=== PATIENT | male | born 1950 | race African-American/Black ===

== ENCOUNTER 2016-09-06 09:31 | Emergency (ER) | payer SELFPAY ==
[~2016-09-06] VITALS: Ht 160 cm; Wt 65.8 kg
[~2016-09-06 09:31] MED LIST: ASPI-482 PO
[2016-09-06] MEDS ORDERED: MULTIVIT INFUSN,ADULT 4,VIT K 10 ML, FOLIC ACID 1 MG, THIAMINE 100 MG in IV DEXTROSE 5%... IV ONE (10:15)
--- NOTE | 2016-09-06 10:16 | EKG ---
[facility] [address] [place] [address] Test Date: 2016-09-06 Test Time: 09:44:46 Pat Name: LAVELL BRODY Department: Room: Gender: M Eyeglass Fitter: : 1950 Requested By: VISHAL SAENZ Order Number: [id number] Reading MD: Lynsey Beckham Measurements Intervals [place] Rate: 78 P: 66 MD: 124 QRS: 52 QRSD: 116 T: 34 QT: 384 QTc: 441 Interpretive Statements SINUS RHYTHM LEFT ATRIAL ABNORMALITY LVH WITH REPOLARIZATION ABNORMALITY ABNORMAL ECG RI6.01 Compared to ECG 11/09/2014 21:59:03 No significant changes Electronically Signed On 09-10-2016 15:13:49 CDT by Lynsey Beckham
[2016-09-06 10:21] LABS: BASO % 1 % (0-3); EOS % 1 % (0-3); HEMATOCRIT 48.4 % (39.0-53.0); HEMOGLOBIN 16.5 g/dL (13.0-17.5); LYMPH # 1.7 x10^3/uL (1.0-4.8); LYMPH % 31 % (24-48); MEAN CORPUSCULAR HEMOGLOBIN 31 pg (25-35); MEAN CORPUSCULAR HGB CONC 34 g/dL (31-37); MEAN CORPUSCULAR VOLUME 91 fL (79-100); MONO % 12 % (0-9); NEUT % 55 % (31-73); PLATELET COUNT 172 x10^3/uL (140-400); RED BLOOD COUNT 5.35 x10^6/uL (4.30-5.70); RED CELL DISTRIBUTION WIDTH 14.2 % (11.5-14.5); WHITE BLOOD COUNT 5.4 x10^3/uL (4.0-11.0)
[2016-09-06 10:32] LABS: CREATININE 1.2 mg/dL (0.7-1.3); POTASSIUM 4.3 mmol/L (3.5-5.1)
--- NOTE | 2016-09-06 10:35 | RAD ---
Indication shortness of breath. History of hypertension. PA and lateral views of the chest were obtained. Comparison is made to an examination 11/09/2014. The heart and pulmonary vessels appear normal. The lungs are clear. There is no pleural fluid or pneumothorax.. Mild scoliosis is noted. IMPRESSION: No acute or focal process is seen in the chest
[2016-09-06 10:38] LABS: ALBUMIN 4.1 g/dL (3.4-5.0); ALBUMIN/GLOBULIN RATIO 0.8 (1.0-1.7); TOTAL BILIRUBIN 0.9 mg/dL (0.2-1.0); TOTAL PROTEIN 9.3 g/dL (6.4-8.2)
--- NOTE | 2016-09-06 11:09 | PHYS DOC ---
Past Medical History Past Medical History: Hypertension Past Surgical History: No Surgical History Alcohol Use: Occasionally Additional Information: PT REPORTS THAT HE HAS BEEN DRINKING FOR 3 WEEKS DAILY UP TO A FIFTH DAILY Drug Use: Cocaine, Marijuana Adult General Chief Complaint Chief Complaint: SHORTNESS OF BREATH HPI HPI Patient is a 65 year old male who presented to the ED with the complaint of short of air, but by the time I saw him, his complaint was "I think I must be dehydrated". Patient feels dehydrated. He has some low back pain that he's had when he has been dehydrated before. He denies vomiting or diarrhea. He states he has been drinking alcohol "as much as I can get my hands on". He's been drinking excessively for several days or weeks. He said he has been through treatment before and had been doing well for quite some time but recently started drinking more due to "stress". Patient is homeless, states he has been staying "with whoever will have me". He has friends and family that he's been going from place to place. He has no primary physician and is on no medications. Gives a history of hepatitis C and states "and I know with that I shouldn't be drinking". Review of Systems Review of Systems Constitutional: Denies fever or chills [] Eyes: Denies change in visual acuity, redness, or eye pain [] HENT: Denies nasal congestion or sore throat [] Respiratory: He had complained of shortness of breath on arrival but did not complain of that to me. Cardiovascular: Denies chest pain GI: Denies abdominal pain, nausea, vomiting, bloody stools or diarrhea [] : Denies dysuria or hematuria [] Musculoskeletal: States he has had a ache in his lower back that he attributed to his "kidneys". Integument: Denies rash or skin lesions [] Neurologic: Denies headache, focal weakness or sensory changes [] Current Medications Current Medications Current Medications Medications (Trade) Dose Ordered Sig/Marisel Start Time Stop Time Status Last Admin Dose Admin Multivitamins/ Folic Acid/ Thiamine HCl/ Dextrose/Lactated Ringer's (Infuvite Adult/ Iv D5%-Lr) 1,011.2 ml @ 1,000 mls/ hr 1X ONCE 09/06/16 10:15 09/06/16 11:15 DC 09/06/16 10:32 1,000 MLS/HR Allergies Allergies Allergies Coded Allergies Type Severity Reaction Last Updated Verified No Known Drug Allergies 11/09/14 No Physical Exam Physical Exam Constitutional: Well developed, well nourished, no acute distress, non-toxic appearance. No overt tremulousness, no diaphoresis, alert, mentating normally. HENT: Normocephalic, atraumatic, bilateral external ears normal, nose normal. [ ] Eyes: conjunctiva normal, no discharge. [] Neck: Normal range of motion, no stridor. [] Cardiovascular:Heart rate regular rhythm, no murmur [] Lungs & Thorax: Bilateral breath sounds clear to auscultation [] Abdomen: Bowel sounds normal, soft, no tenderness, no masses, no pulsatile masses. [] Skin: Warm, dry, no erythema, no rash. [] Extremities: No tenderness, no cyanosis, no clubbing, ROM intact, no edema. [] Neurologic: Alert and oriented X 3, normal motor function, normal sensory function, no focal deficits noted. [] Current Patient Data Vital Signs Vital Signs Date Time Temp Pulse Resp B/P Pulse Ox O2 Delivery O2 Flow Rate FiO2 09/06/16 12:30 82 16 113/78 97 Room Air 09/06/16 09:33 98.5 98.5 Lab Values Laboratory Tests Test 09/06/16 09:48 White Blood Count 5.4x10^3/uL (4.0-11.0) Red Blood Count 5.35x10^6/uL (4.30-5.70) Hemoglobin 16.5g/dL (13.0-17.5) Hematocrit 48.4% (39.0-53.0) Mean Corpuscular Volume 91fL (79-100) Mean Corpuscular Hemoglobin 31pg (25-35) Mean Corpuscular Hemoglobin Concent 34g/dL (31-37) Red Cell Distribution Width 14.2% (11.5-14.5) Platelet Count 172x10^3/uL (140-400) Neutrophils (%) (Auto) 55% (31-73) Lymphocytes (%) (Auto) 31% (24-48) Monocytes (%) (Auto) 12% (0-9) H Eosinophils (%) (Auto) 1% (0-3) Basophils (%) (Auto) 1% (0-3) Neutrophils # (Auto) 3.0x10^3uL (1.8-7.7) Lymphocytes # (Auto) 1.7x10^3/uL (1.0-4.8) Monocytes # (Auto) 0.6x10^3/uL (0.0-1.1) Eosinophils # (Auto) 0.1x10^3/uL (0.0-0.7) Basophils # (Auto) 0.0x10^3/uL (0.0-0.2) Sodium Level 137mmol/L (136-145) Potassium Level 4.3mmol/L (3.5-5.1) Chloride Level 96mmol/L (98-107) L Carbon Dioxide Level 28mmol/L (21-32) Anion Gap 13 (6-14) Blood Urea Nitrogen 15mg/dL (8-26) Creatinine 1.2mg/dL (0.7-1.3) Estimated GFR (Cockcroft-Gault) 74.0 BUN/Creatinine Ratio 13 (6-20) Glucose Level 149mg/dL (70-99) H Calcium Level 10.0mg/dL (8.5-10.1) Total Bilirubin 0.9mg/dL (0.2-1.0) Aspartate Amino Transferase (AST) 86U/L (15-37) H Alanine Aminotransferase (ALT) 69U/L (16-63) H Alkaline Phosphatase 102U/L (46-116) Troponin I Quantitative 0.034ng/mL (0.000-0.055) LN-Uqf-B-Type Natriuretic Peptide 568pg/mL (0-124) H Total Protein 9.3g/dL (6.4-8.2) H Albumin 4.1g/dL (3.4-5.0) Albumin/Globulin Ratio 0.8 (1.0-1.7) L Laboratory Tests 09/06/16 09:48 Laboratory Tests 09/06/16 09:48 EKG EKG 12-lead EKG read by me. Sinus rhythm. Heart rate 78. There are no acute ST or T wave changes indicative of ischemia or infarction. No STEMI. 0 944 [] Radiology/Procedures Radiology/Procedures [] Course & Med Decision Making Course & Med Decision Making Pertinent Labs and Imaging studies reviewed. (See chart for details) 65-year-old male who presents with multiple complaints many of which may be related to his heavy drinking. I suggested that he consider visit to AA. He has been successful with drinking cessation in the past. I advised we would check some labs and give him a banana bag and he is agreeable to that. Labs unremarkable. Patient was feeling better after banana bag. He'll be discharged to home. [] Dragon Disclaimer Dragon Disclaimer This electronic medical record was generated, in whole or in part, using a voice recognition dictation system. Departure Departure Impression: Primary Impression: Dehydration Additional Impression: Alcohol abuse Disposition: HOME, SELF-CARE Condition: IMPROVED Referrals: NO PCP (PCP) Patient Instructions: Alcohol Problems Additional Instructions: Drink plenty of fluids. As we discussed, I recommend that you consider going back to AA meetings. Problem Qualifiers VISHAL SAENZ MD Sep 06, 2016 11:09
[2016-09-06 12:30] VITALS: BP 113/78
== END 2016-09-06 13:05 | disposition home or self-care (01) ==
LOC: ER 09:31
DX: E86.0 Dehydration (principal); R06.02 Shortness of breath; M54.5 Low back pain; I10 Essential (primary) hypertension; F12.10 Cannabis abuse, uncomplicated; F14.10 Cocaine abuse, uncomplicated
CPT/HCPCS: 36415; 71020; 80053; 83880; 84484; 85027; 93005; 96365; 99285-25

== ENCOUNTER → 2017-03-02 | Emergency (ER) | payer SELFPAY ==
[~2017-03-02] VITALS: Ht 177.8 cm; Wt 65.8 kg
[~2017-03-02] MED LIST changes: +ACETAMINOPHEN 325 MG TABLET. PO ONE
[2017-03-02 06:45] VITALS: BP 113/78
[2017-03-02 07:34] LABS: BILIRUBIN,URINE NEGATIVE (NEG); GLUCOSE,URINE NEGATIVE (NEG); NITRITE,URINE NEGATIVE (NEG); PROTEIN,URINE NEGATIVE (NEG-TRACE); UROBILINOGEN,URINE 0.2 mg/dL (0.2 mg/dL)
--- NOTE | 2017-03-02 07:36 | PHYS DOC ---
Past Medical History Past Medical History: Hypertension Past Surgical History: No Surgical History Smoking: Cigarettes Alcohol Use: Occasionally Additional Information: "2-3 beers a day" Drug Use: Cocaine, Marijuana Adult General Chief Complaint Chief Complaint: Neck Pain HPI HPI Patient is a 66 year old male presents to the emergency department stating he developed neck pain on the left side of his neck that started at 10 pm. Patient states in approximately 4 hours the pain developed on the right side of his neck as well. He states he had taken Tylenol at 3 pm. He states he has increase pain and discomfort with moving his head. He denies light sensitivity. 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 Patient states when he left he was disoriented and confused and fell outside work. He states when he fell he rolled with fall. Denies any injury from the fall. Review of Systems Review of Systems Constitutional: Denies fever or chills [] Eyes: Denies change in visual acuity, redness, or eye pain [] HENT: Denies nasal congestion or sore throat [] Respiratory: Denies cough or shortness of breath [] Cardiovascular: No additional information not addressed in HPI [] GI: Denies abdominal pain, nausea, vomiting, bloody stools or diarrhea [] : Denies dysuria or hematuria [] Musculoskeletal: c/o neck pain Integument: Denies rash or skin lesions [] Neurologic: Denies headache, focal weakness or sensory changes [] Endocrine: Denies polyuria or polydipsia [] Current Medications Current Medications Current Medications Medications (Trade) Dose Ordered Sig/[facility] Start Time Stop Time Status Last Admin Dose Admin Acetaminophen (Tylenol) 650 mg 1X ONCE 03/02/17 07:30 03/02/17 07:31 Allergies Allergies Allergies Coded Allergies Type Severity Reaction Last Updated Verified No Known Drug Allergies 11/09/14 No Physical Exam Physical Exam Constitutional: Well developed, well nourished, no acute distress, non-toxic appearance. [] HENT: Normocephalic, atraumatic, bilateral external ears normal, oropharynx moist, no oral exudates, nose normal. [] Eyes: PERRLA, EOMI, conjunctiva normal, no discharge. [] Neck: Normal range of motion, no tenderness, supple, no stridor. [] Cardiovascular:Heart rate regular rhythm, no murmur [] Lungs & Thorax: Bilateral breath sounds clear to auscultation [] Abdomen: Bowel sounds normal, soft, no tenderness, no masses, no pulsatile masses. [] Skin: Warm, dry, no erythema, no rash. [] Back: Bilateral neck and upper back tenderness,no cervical spine, thoracic spine tenderness, no step-offs, no deformities and no crepitus. Extremities: No tenderness, no cyanosis, no clubbing, ROM intact, no edema. [] Neurologic: Alert and oriented X 3, normal motor function, normal sensory function, no focal deficits noted. Patient with equal sound recordist noted bilaterally Psychologic: Affect normal, judgement normal, mood normal. [] Current Patient Data Vital Signs Vital Signs Date Time Temp Pulse Resp B/P (MAP) Pulse Ox O2 Delivery O2 Flow Rate FiO2 03/02/17 06:45 98.2 82 20 113/78 (90) 99 Room Air 98.2 EKG EKG [] Radiology/Procedures Radiology/Procedures [] Course & Med Decision Making Course & Med Decision Making Pertinent Labs and Imaging studies reviewed. (See chart for details) During the assessment and HPI patient sat in the bed with eyes closed. Patient made no eye contact with the provider. When patient was informed of lab test being ordered patient then looked at the provider asking why we need a urine sample. [] Dragon Disclaimer Dragon Disclaimer This electronic medical record was generated, in whole or in part, using a voice recognition dictation system. Departure Departure Referrals: NO PCP (PCP) ALBERTO MADSEN APRN Mar 02, 2017 07:36
[2017-03-02 07:44] LABS: BACTERIA,URINE 0 /HPF (0-FEW); RBC,URINE 0 /HPF (0-2); SQUAMOUS EPITHELIAL CELL,UR FEW /LPF; WBC,URINE 0 /HPF (0-4)
== END ==
LOC: ER 06:45
DX: M54.2 Cervicalgia (principal); M54.6 Pain in thoracic spine; I10 Essential (primary) hypertension; F17.210 Nicotine dependence, cigarettes, uncomplicated; W18.39XA Other fall on same level, initial encounter; Y93.89 Activity, other specified; Y92.89 Other specified places as the place of occurrence of the external cause; Y99.8 Other external cause status
CPT/HCPCS: 81001; 99284

== ENCOUNTER 2018-03-14 23:33 | Inpatient (IN) | payer SELFPAY ==
[~2018-03-14] VITALS: Ht 160 cm; Wt 61.2 kg
[~2018-03-14 23:33] MED LIST changes: -ACETAMINOPHEN 325 MG TABLET. PO ONE
--- NOTE | 2018-03-14 23:46 | PHYS DOC ---
Past Medical History Past Medical History: CAD, Hypertension Past Surgical History: Coronary Bypass Surgery Smoking: Cigarettes Alcohol Use: Occasionally Drug Use: Cocaine, Marijuana Adult General [facility] HPI Patient is a 67-year-old male who presents to the emergency department via EMS. He states about 2 hours ago, he began experiencing some numbness and tingling in his right hand, and also had some weakness in the muscles of his right hand. He states his symptoms lasted about an hour but has now resolved. He denies having had any headache or vision changes, chest pain, shortness of breath, and denies a headache. He is back to his baseline now. He ambulated from the ambulance to the emergency department treatment room without any difficulty, with a steady gait. He has a history of hypertension, as well as coronary disease and is supposed be on several medications including aspirin, and antihypertensive medications, but has not taken them for some time. He does not currently have a treating physician. There are no alleviating or exacerbating factors to the patient's symptoms. He is completely asymptomatic now, without any numbness or weakness. Review of Systems Review of Systems Constitutional: Denies fever or chills [] Eyes: Denies change in visual acuity, redness, or eye pain [] HENT: Denies nasal congestion or sore throat [] Respiratory: Denies cough or shortness of breath [] Cardiovascular: The patient denies any shortness of breath, chest pain, palpitations, or orthopnea[] GI: Denies abdominal pain, nausea, vomiting, bloody stools or diarrhea [] : Denies dysuria or hematuria [] Musculoskeletal: Denies back pain or joint pain [] Integument: Denies rash or skin lesions [] Neurologic: No additional information not addressed in HPI [] Endocrine: Denies polyuria or polydipsia [] All other systems were reviewed and found to be within normal limits, except as documented in this note. Allergies Allergies Allergies Coded Allergies Type Severity Reaction Last Updated Verified No Known Drug Allergies 11/09/14 No Physical Exam Physical Exam PHYSICAL EXAM: CONSTITUTIONAL: Well developed, well nourished HEAD: normocephalic, atraumatic EENT: PERRL, EOMI. Conjunctivae normal color, sclerae non-icteric; moist mucous membranes. NECK: Supple, non-tender; no meningismus. There are no carotid bruits LUNGS: Lungs CTA, breathing even and unlabored. Normal air movement. HEART: Regular rate and rhythm, no murmur CHEST: No deformity; non-tender ABDOMEN: The abdomen is soft, and non-tender, no masses or bruits. EXTREM: Normal ROM; no deformity, no calf tenderness. Normal pulses palpable in all extremities. There is no pedal edema. SKIN: No rash; no diaphoresis NEURO: Alert; normal speech and cognition; CN's grossly intact; strength grossly intact without focal deficit. Dovuhl-anuu-jaqrff and heel chatterjee testing are normal. Visual galvan are intact by confrontation. There is no sensory deficit to pinprick. NIH stroke scale score is 0. BACK: No CVA TTP. Current Patient Data Vital Signs Vital Signs Date Time Temp Pulse Resp B/P (MAP) Pulse Ox O2 Delivery O2 Flow Rate FiO2 03/14/18 23:35 98.4 86 21 190/121 (144) 99 Room Air 98.4 Lab Values Laboratory Tests Test 03/14/18 23:47 03/15/18 00:45 03/15/18 00:48 White Blood Count 4.7 x10^3/uL (4.0-11.0) Red Blood Count 4.75 x10^6/uL (4.30-5.70) Hemoglobin 14.0 g/dL (13.0-17.5) Hematocrit 40.9 % (39.0-53.0) Mean Corpuscular Volume 86 fL (79-100) Mean Corpuscular Hemoglobin 29 pg (25-35) Mean Corpuscular Hemoglobin Concent 34 g/dL (31-37) Red Cell Distribution Width 16.2 % (11.5-14.5) H Platelet Count 139 x10^3/uL (140-400) L Neutrophils (%) (Auto) 56 % (31-73) Lymphocytes (%) (Auto) 27 % (24-48) Monocytes (%) (Auto) 14 % (0-9) H Eosinophils (%) (Auto) 3 % (0-3) Basophils (%) (Auto) 1 % (0-3) Neutrophils # (Auto) 2.6 x10^3uL (1.8-7.7) Lymphocytes # (Auto) 1.3 x10^3/uL (1.0-4.8) Monocytes # (Auto) 0.7 x10^3/uL (0.0-1.1) Eosinophils # (Auto) 0.1 x10^3/uL (0.0-0.7) Basophils # (Auto) 0.0 x10^3/uL (0.0-0.2) Sodium Level 136 mmol/L (136-145) Potassium Level 3.7 mmol/L (3.5-5.1) Chloride Level 100 mmol/L (98-107) Carbon Dioxide Level 26 mmol/L (21-32) Anion Gap 10 (6-14) Blood Urea Nitrogen 14 mg/dL (8-26) Creatinine 0.9 mg/dL (0.7-1.3) Estimated GFR (Cockcroft-Gault) 102.5 BUN/Creatinine Ratio 16 (6-20) Glucose Level 89 mg/dL (70-99) Calcium Level 9.2 mg/dL (8.5-10.1) Total Bilirubin 1.0 mg/dL (0.2-1.0) Aspartate Amino Transferase (AST) 95 U/L (15-37) H Alanine Aminotransferase (ALT) 49 U/L (16-63) Alkaline Phosphatase 111 U/L (46-116) Troponin I Quantitative 0.050 ng/mL (0.000-0.055) Total Protein 8.4 g/dL (6.4-8.2) H Albumin 3.4 g/dL (3.4-5.0) Albumin/Globulin Ratio 0.7 (1.0-1.7) L Urine Opiates Screen Neg (NEG) Urine Methadone Screen Neg (NEG) Urine Barbiturates Neg (NEG) Urine Phencyclidine Screen Neg (NEG) Urine Amphetamine/Methamphetamine Neg (NEG) Urine Benzodiazepines Screen Neg (NEG) Urine Cocaine Screen Pos (NEG) Urine Cannabinoids Screen Neg (NEG) Urine Ethyl Alcohol Neg (NEG) Laboratory Tests 03/14/18 23:47 Laboratory Tests 03/15/18 00:45 EKG EKG [Normal sinus rhythm at a rate of 80 beats for minute, normal axis, normal intervals, left ventricle hypertrophy is present, with repolarization abnormality, and nonspecific lateral ST/T changes.] Patient's EKG is not significantly changed compared to his prior EKG from 08/2016 Radiology/Procedures Radiology/Procedures [PROCEDURE: CT HEAD WO CONTRAST INDICATION: RT.SIDED WEAKNESS COMPARISON: August 2009 TECHNIQUE: Axial CT images obtained through the head without intravenous contrast. One or more of the following individualized dose reduction techniques were utilized for this examination: 1. Automated exposure control; 2. Adjustment of the mA and/or kV according to patient size; 3. Use of iterative reconstruction technique. FINDINGS: No intracranial hemorrhage. No midline shift. Basal cisterns patents. Ventricles and sulci are globally prominent. No acute osseous abnormality. Orbits and paranasal sinuses unremarkable. Scattered foci of low attenuation within the white matter. IMPRESSION: 1. No acute intracranial hemorrhage. 2. Scattered regions of low attenuation within the white matter. Non-specific in nature but frequently secondary to small vessel ischemic disease. Some other possible causes include sequela of demyelination or migraine. This does appear progressed from prior exams and if there is any clinical concern for acute causes a follow-up MRI could BE obtained to assess whether any of these foci are acute. 3. Prominence of ventricles and sulci which is frequently secondary to age related volume loss. 4. At the left side of the [place] there is suspicion for aneurysmal dilatation of the distal aspect of the left internal carotid artery with the suspected region of aneurysmal dilatation measuring up to approximately 10 x 7 mm. This measurement may not be very accurate given the tortuosity of the vessel in this region. There is also some apparent fullness of the left distal internal carotid artery on prior exam but this does appear more prominent than prior. Given the presence of this finding if an MRI is obtained would consider obtaining MR angiographic images as well to further assess for an aneurysm within the region. ] Course & Med Decision Making Course & Med Decision Making Pertinent Labs and Imaging studies reviewed. (See chart for details) [1:30 AM: The patient's condition remained stable. His neurologic status and mental status remained normal. He denies a headache. I discussed test results with the patient, and the patient be admitted to the hospitalist, Dr. Victoria , who accepted the admission.] Dragon Disclaimer Dragon Disclaimer This electronic medical record was generated, in whole or in part, using a voice recognition dictation system. Departure Departure Impression: Primary Impression: TIA (transient ischemic attack) Additional Impression: Hypertension Disposition: ADMITTED INPATIENT Admitting Physician: Alberto Claros Condition: STABLE Referrals: NO PCP (PCP) Problem Qualifiers ATA DESOUZA MD Mar 14, 2018 23:46
[2018-03-14 23:58] LABS: BASO % 1 % (0-3); EOS # 0.1 x10^3/uL (0.0-0.7); EOS % 3 % (0-3); HEMATOCRIT 40.9 % (39.0-53.0); LYMPH # 1.3 x10^3/uL (1.0-4.8); LYMPH % 27 % (24-48); MEAN CORPUSCULAR HEMOGLOBIN 29 pg (25-35); MEAN CORPUSCULAR HGB CONC 34 g/dL (31-37); MEAN CORPUSCULAR VOLUME 86 fL (79-100); MONO # 0.7 x10^3/uL (0.0-1.1); MONO % 14 % (0-9); NEUT # 2.6 x10^3uL (1.8-7.7); NEUT % 56 % (31-73); PLATELET COUNT 139 x10^3/uL (140-400); RED BLOOD COUNT 4.75 x10^6/uL (4.30-5.70); RED CELL DISTRIBUTION WIDTH 16.2 % (11.5-14.5); WHITE BLOOD COUNT 4.7 x10^3/uL (4.0-11.0)
[2018-03-15 01:02] LABS: BARBITURATES NEG (NEG); BENZODIAZEPINES NEG (NEG); CANNABINOIDS NEG (NEG); COCAINE POS (NEG); METHADONE NEG (NEG); OPIATES NEG (NEG); PHENCYCLIDINE NEG (NEG)
[2018-03-15 01:03] LABS: AMPHETAMINE/METHAMPHETAMINE NEG (NEG)
[2018-03-15 01:04] LABS: CALCIUM 9.2 mg/dL (8.5-10.1); CREATININE 0.9 mg/dL (0.7-1.3); GFR 102.5; POTASSIUM 3.7 mmol/L (3.5-5.1)
--- NOTE | 2018-03-15 01:07 | RAD ---
INDICATION: RT.SIDED WEAKNESS COMPARISON: August 2009 TECHNIQUE: Axial CT images obtained through the head without intravenous contrast. One or more of the following individualized dose reduction techniques were utilized for this examination: 1. Automated exposure control; 2. Adjustment of the mA and/or kV according to patient size; 3. Use of iterative reconstruction technique. FINDINGS: No intracranial hemorrhage. No midline shift. Basal cisterns patents. Ventricles and sulci are globally prominent. No acute osseous abnormality. Orbits and paranasal sinuses unremarkable. Scattered foci of low attenuation within the white matter. IMPRESSION: 1. No acute intracranial hemorrhage. 2. Scattered regions of low attenuation within the white matter. Non-specific in nature but frequently secondary to small vessel ischemic disease. Some other possible causes include sequela of demyelination or migraine. This does appear progressed from prior exams and if there is any clinical concern for acute causes a follow-up MRI could BE obtained to assess whether any of these foci are acute. 3. Prominence of ventricles and sulci which is frequently secondary to age related volume loss. 4. At the left side of the [place] there is suspicion for aneurysmal dilatation of the distal aspect of the left internal carotid artery with the suspected region of aneurysmal dilatation measuring up to approximately 10 x 7 mm. This measurement may not be very accurate given the tortuosity of the vessel in this region. There is also some apparent fullness of the left distal internal carotid artery on prior exam but this does appear more prominent than prior. Given the presence of this finding if an MRI is obtained would consider obtaining MR angiographic images as well to further assess for an aneurysm within the region. Electronically signed by: Brian Jacinto MD (03/15/2018 1:04 AM) [id number]
[2018-03-15 01:10] LABS: ALBUMIN 3.4 g/dL (3.4-5.0); ALBUMIN/GLOBULIN RATIO 0.7 (1.0-1.7); TOTAL PROTEIN 8.4 g/dL (6.4-8.2)
[2018-03-15] MEDS ORDERED: ASPIRIN CHEWABLE 81 MG TABLET. PO ONE (02:00)
[2018-03-15] MEDS ORDERED: LISINOPRIL 10 MG TABLET PO ONE (02:15)
[2018-03-15 03:00] VITALS: BP 176/111
[2018-03-15] MEDS ORDERED: CARV25TA2 PO (04:21)
[2018-03-15] MEDS ORDERED: prinivil (04:21)
[2018-03-15 07:00] VITALS: BP 114/73
--- NOTE | 2018-03-15 07:16 | EKG ---
[facility] [address] [place] [address] Test Date: 2018-03-14 Test Time: 23:57:06 Pat Name: LAVELL BRODY Department: Room: 2 1 Gender: M Process Coordinator: : 1950 Requested By: ATA DESOUZA Order Number: [id number] Reading MD: Ray Nunes MD Measurements Intervals [place] Rate: 80 P: 34 [place]: 136 QRS: 42 QRSD: 86 T: 128 QT: 370 QTc: 430 Interpretive Statements SINUS RHYTHM LEFT ATRIAL ABNORMALITY QRS(T) CONTOUR ABNORMALITY CONSIDER ANTEROSEPTAL MYOCARDIAL DAMAGE ST & T ABNORMALITY, CONSIDER LATERAL ISCHEMIA OR LEFT VENTRICULAR STRAIN ABNORMAL ECG Electronically Signed On 03-18-2018 11:15:19 CDT by Ray Nunes MD
--- NOTE | 2018-03-15 08:56 | RAD ---
PORTABLE CHEST 1V Clinical Indication: WEAKNESS Comparison: Two-view chest September 06, 2016. Findings: There has been interval CABG. Atherosclerotic thoracic aorta. Cardiac silhouette is enlarged. Cannot exclude pericardial effusion contributing to the cardiac silhouette. Lungs are clear. There is no pneumothorax. Small left pleural effusion. No acute bone abnormality. IMPRESSION: 1. Interval CABG. New cardiomegaly. 2. Small left pleural effusion. Electronically signed by: Keegan Sepulveda MD (03/15/2018 8:54 AM) [id number]
[2018-03-15] MEDS ORDERED: IBUPROFEN 400 MG TABLET. PO PRN (09:45)
[2018-03-15] MEDS ORDERED: ONDANSETRON ODT 4 MG TAB.RAPDIS. PO PRN (09:45)
[2018-03-15] MEDS ORDERED: ACETAMINOPHEN 500 MG TABLET PO PRN (09:45)
[2018-03-15] MEDS ORDERED: ONDANSETRON PF 4 MG/2 ML VIAL. IV PRN (09:45)
[2018-03-15] MEDS ORDERED: ACETAMINOPHEN/CODEINE 300/30MG TABLET. PO PRN (09:45)
[2018-03-15] MEDS: CARVEDILOL 12.5 MG TABLET. PO SCH ×2 (10:21→17:28)
[2018-03-15 11:00] VITALS: BP 131/72
--- NOTE | 2018-03-15 12:49 | PDOC1 ---
History and Physical Date of Admission Date of Admission DATE: 03/15/18 TIME: 12:45 Identification/Chief Complaint Chief Complaint Right hand tingling numbness with weakness 2 hours prior to admission-resolved after 1 hour Source Source: Caregiver, Chart review History of Present Illness History of Present Illness 67-year-old male with history of CAD/history CABG, hypertension comes in because of the above chief complaint. By the time of ER arrival symptoms have resolved. There was no slurred speech or dysphagia. Neuro exam is nonfocal. CT head shows maybe atrophic brain, some findings which we see in chronic migraine headaches otherwise admitted for MRI/stroke workup. There is also some mention of an aneurysm, he is down having MRI and MRA as ordered by neurology. Again neuro exam nonfocal, no complaints as per staff CT head: 1. No acute intracranial hemorrhage. 2. Scattered regions of low attenuation within the white matter. Non-specific in nature but frequently secondary to small vessel ischemic disease. Some other possible causes include sequela of demyelination or migraine. This does appear progressed from prior exams and if there is any clinical concern for acute causes a follow-up MRI could BE obtained to assess whether any of these foci are acute. 3. Prominence of ventricles and sulci which is frequently secondary to age related volume loss. 4. At the left side of the [place] there is suspicion for aneurysmal dilatation of the distal aspect of the left internal carotid artery with the suspected region of aneurysmal dilatation measuring up to approximately 10 x 7 mm. This measurement may not be very accurate given the tortuosity of the vessel in this region. There is also some apparent fullness of the left distal internal carotid artery on prior exam but this does appear more prominent than prior. Given the presence of this finding if an MRI is obtained would consider obtaining MR angiographic images as well to further assess for an aneurysm within the region. Past Medical History Cardiovascular: CAD, HTN Past Surgical History Past Surgical History: CABG Family History Family History: Hypertension Social History Smoke: No ALCOHOL: none Drugs: None Current Problem List Problem List Problems Medical Problems: (1) Hypertension Status: Acute (2) TIA (transient ischemic attack) Status: Acute Current Medications Current Medications Current Medications Aspirin (Children'S Aspirin) 324 mg 1X ONCE PO Last administered on at 02:29; Start 03/15/18 at 02:00; Stop 03/15/18 at 02:01; Status DC Lisinopril (Prinivil) 10 mg 1X ONCE PO Last administered on 03/15/18at 02:29; Start 03/15/18 at 02:15; Stop 03/15/18 at 02:16; Status DC Acetaminophen (Tylenol) 500 mg PRN Q6HRS PRN PO MILD PAIN / TEMP; Start at 09:45 Acetaminophen/ Codeine Phosphate (Tylenol #3) 1 tab PRN Q6HRS PRN PO MODERATE PAIN; Start 03/15/18 at 09:45 Ondansetron HCl (Zofran) 4 mg PRN Q6HRS PRN IV NAUSEA/VOMITING; Start at 09:45 Ondansetron HCl (Zofran Odt) 4 mg PRN Q6HRS PRN PO NAUSEA/VOMITING; Start at 09:45 Ibuprofen (Motrin) 400 mg PRN Q6HRS PRN PO INFLAMMATION; Start 03/15/18 at 09: 45 Aspirin (Ecotrin) 81 mg DAILY PO ; Start 03/16/18 at 09:00 Carvedilol (Coreg) 25 mg BIDWMEALS PO Last administered on 03/15/18at 10:21; Start 03/15/18 at 10:30 Active Scripts Active Reported Carvedilol 25 Mg Tablet 1 Tab PO BID [prinivil] Aspir 81 (Aspirin) 81 Mg Tablet.dr 1 Tab PO DAILY Allergies Allergies: Coded Allergies: No Known Drug Allergies (Unverified , 11/09/14) ROS Review of System As per history of present illness, the rest of ROS 14 point negative Physical Exam General: Alert, Oriented X3, Cooperative, No acute distress HEENT: Atraumatic, PERRLA, EOMI Lungs: Clear to auscultation, Normal air movement Heart: S1S2, RRR, no thrills, no rubs, no gallops, no murmurs Cardiovascular: S1, S2 Abdomen: Normal bowel sounds, Soft, No tenderness, No hepatosplenomegaly, No masses Male Genitals Exam: normal genitalia, normal prostate Rectal Exam: not examined PELVIC: Nml ext genitalia Extremities: No clubbing, No cyanosis, No edema, Normal pulses, No tenderness/ swelling Skin: No rashes, No breakdown, No significant lesion Neuro: Normal gait, Normal speech, Strength at 5/5 X4 ext, Normal tone, Sensation intact, Cranial nerves 3-12 NL, Reflexes 2+ Psych/Mental Status: Mental status NL, Mood NL Vitals Vitals Vital Signs Date Time Temp Pulse Resp B/P (MAP) Pulse Ox O2 Delivery O2 Flow Rate FiO2 03/15/18 11:00 98.8 72 18 131/72 (91) 97 Room Air 98.8 Labs Labs Laboratory Tests Test 03/14/18 23:47 03/15/18 00:45 03/15/18 00:48 White Blood Count 4.7 x10^3/uL (4.0-11.0) Red Blood Count 4.75 x10^6/uL (4.30-5.70) Hemoglobin 14.0 g/dL (13.0-17.5) Hematocrit 40.9 % (39.0-53.0) Mean Corpuscular Volume 86 fL (79-100) Mean Corpuscular Hemoglobin 29 pg (25-35) Mean Corpuscular Hemoglobin Concent 34 g/dL (31-37) Red Cell Distribution Width 16.2 % (11.5-14.5) Platelet Count 139 x10^3/uL (140-400) Neutrophils (%) (Auto) 56 % (31-73) Lymphocytes (%) (Auto) 27 % (24-48) Monocytes (%) (Auto) 14 % (0-9) Eosinophils (%) (Auto) 3 % (0-3) Basophils (%) (Auto) 1 % (0-3) Neutrophils # (Auto) 2.6 x10^3uL (1.8-7.7) Lymphocytes # (Auto) 1.3 x10^3/uL (1.0-4.8) Monocytes # (Auto) 0.7 x10^3/uL (0.0-1.1) Eosinophils # (Auto) 0.1 x10^3/uL (0.0-0.7) Basophils # (Auto) 0.0 x10^3/uL (0.0-0.2) Sodium Level 136 mmol/L (136-145) Potassium Level 3.7 mmol/L (3.5-5.1) Chloride Level 100 mmol/L (98-107) Carbon Dioxide Level 26 mmol/L (21-32) Anion Gap 10 (6-14) Blood Urea Nitrogen 14 mg/dL (8-26) Creatinine 0.9 mg/dL (0.7-1.3) Estimated GFR (Cockcroft-Gault) 102.5 BUN/Creatinine Ratio 16 (6-20) Glucose Level 89 mg/dL (70-99) Calcium Level 9.2 mg/dL (8.5-10.1) Total Bilirubin 1.0 mg/dL (0.2-1.0) Aspartate Amino Transf (AST/SGOT) 95 U/L (15-37) Alanine Aminotransferase (ALT/SGPT) 49 U/L (16-63) Alkaline Phosphatase 111 U/L (46-116) Troponin I Quantitative 0.050 ng/mL (0.000-0.055) Total Protein 8.4 g/dL (6.4-8.2) Albumin 3.4 g/dL (3.4-5.0) Albumin/Globulin Ratio 0.7 (1.0-1.7) Thyroid Stimulating Hormone (TSH) 1.485 uIU/mL (0.358-3.74) Urine Opiates Screen Neg (NEG) Urine Methadone Screen Neg (NEG) Urine Barbiturates Neg (NEG) Urine Phencyclidine Screen Neg (NEG) Urine Amphetamine/Methamphetamine Neg (NEG) Urine Benzodiazepines Screen Neg (NEG) Urine Cocaine Screen Pos (NEG) Urine Cannabinoids Screen Neg (NEG) Urine Ethyl Alcohol Neg (NEG) Laboratory Tests Test 03/14/18 23:47 03/15/18 00:45 03/15/18 00:48 White Blood Count 4.7 x10^3/uL (4.0-11.0) Red Blood Count 4.75 x10^6/uL (4.30-5.70) Hemoglobin 14.0 g/dL (13.0-17.5) Hematocrit 40.9 % (39.0-53.0) Mean Corpuscular Volume 86 fL (79-100) Mean Corpuscular Hemoglobin 29 pg (25-35) Mean Corpuscular Hemoglobin Concent 34 g/dL (31-37) Red Cell Distribution Width 16.2 % (11.5-14.5) Platelet Count 139 x10^3/uL (140-400) Neutrophils (%) (Auto) 56 % (31-73) Lymphocytes (%) (Auto) 27 % (24-48) Monocytes (%) (Auto) 14 % (0-9) Eosinophils (%) (Auto) 3 % (0-3) Basophils (%) (Auto) 1 % (0-3) Neutrophils # (Auto) 2.6 x10^3uL (1.8-7.7) Lymphocytes # (Auto) 1.3 x10^3/uL (1.0-4.8) Monocytes # (Auto) 0.7 x10^3/uL (0.0-1.1) Eosinophils # (Auto) 0.1 x10^3/uL (0.0-0.7) Basophils # (Auto) 0.0 x10^3/uL (0.0-0.2) Sodium Level 136 mmol/L (136-145) Potassium Level 3.7 mmol/L (3.5-5.1) Chloride Level 100 mmol/L (98-107) Carbon Dioxide Level 26 mmol/L (21-32) Anion Gap 10 (6-14) Blood Urea Nitrogen 14 mg/dL (8-26) Creatinine 0.9 mg/dL (0.7-1.3) Estimated GFR (Cockcroft-Gault) 102.5 BUN/Creatinine Ratio 16 (6-20) Glucose Level 89 mg/dL (70-99) Calcium Level 9.2 mg/dL (8.5-10.1) Total Bilirubin 1.0 mg/dL (0.2-1.0) Aspartate Amino Transf (AST/SGOT) 95 U/L (15-37) Alanine Aminotransferase (ALT/SGPT) 49 U/L (16-63) Alkaline Phosphatase 111 U/L (46-116) Troponin I Quantitative 0.050 ng/mL (0.000-0.055) Total Protein 8.4 g/dL (6.4-8.2) Albumin 3.4 g/dL (3.4-5.0) Albumin/Globulin Ratio 0.7 (1.0-1.7) Thyroid Stimulating Hormone (TSH) 1.485 uIU/mL (0.358-3.74) Urine Opiates Screen Neg (NEG) Urine Methadone Screen Neg (NEG) Urine Barbiturates Neg (NEG) Urine Phencyclidine Screen Neg (NEG) Urine Amphetamine/Methamphetamine Neg (NEG) Urine Benzodiazepines Screen Neg (NEG) Urine Cocaine Screen Pos (NEG) Urine Cannabinoids Screen Neg (NEG) Urine Ethyl Alcohol Neg (NEG) VTE Prophylaxis Ordered VTE Prophylaxis Devices: Yes VTE Pharmacological Prophylaxi: Yes Assessment/Plan Assessment/Plan Right-handed tingling numbness weakness-transient, resolved History CAD/HALE-[id number] stable controlled 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
--- NOTE | 2018-03-15 14:52 | RAD ---
MRI of the brain without contrast 03/15/2018 Clinical History: Weakness and lethargy. Abnormal head CT. Technique: Unenhanced T1-weighted sagittal and axial, T2-weighted axial and coronal and FLAIR, gradient echo and diffusion-weighted axial images of the brain were obtained. Findings: Comparison is made to the patient's CT scan of the head performed earlier today. Images from the study are degraded by patient motion.. There is generalized parenchymal atrophy. Patchy, confluent and multiple focal areas of increased signal intensity are seen within the periventricular and subcortical white matter of both cerebral hemispheres along with the sylvia on the FLAIR and T2-weighted images consistent with areas of extensive small vessel ischemic disease.A 3.5 mm rounded area of markedly decreased signal intensity is seen involving the left parietal occipital lobe. There is no surrounding edema or associated mass effect. This is felt to most likely represent a cavernous angioma. Small old areas of lacunar infarction are seen involving the white matter of the left frontal temporal lobe. These measure 5 to 6 mm in size. No acute parenchymal abnormality is seen. No extra-axial fluid collection is seen. There is no MRI evidence of acute ischemia/infarction. Mild mucosal thickening in seen scattered throughout the paranasal sinuses. 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 This corresponds to the abnormality seen on the patient's CT scan. Impression: 1. No acute parenchymal abnormality is seen. 2. 9 mm saccular aneurysm is seen projecting superiorly from the termination of the left internal carotid artery. Electronically signed by: Moiz Hayes MD (03/15/2018 2:49 PM) [id number]
--- NOTE | 2018-03-15 14:59 | RAD ---
MRA of the head without contrast 03/15/2018 CLINICAL HISTORY: Suspected aneurysm seen CT scan of the head performed earlier today. TECHNIQUE: Using 3-D time of flight techniques, a MRA of the major arterial structures surrounding the [place] performed. Multiplanar 3-D MIP reconstructed images were obtained. FINDINGS: Comparison is made to the patient's CT scan of the head performed earlier today along with the patient's MRA of the head performed concurrently with this examination. Images from the study are degraded by patient motion. Mild atheromatous plaque formation is seen involving the cavernous portions of both internal carotid arteries. Mild atheromatous plaque formation is seen involving the basilar artery. No area stenosis or occlusion is seen. A saccular aneurysm is seen projecting superiorly from the termination of the supraclinoid left internal carotid artery. This measures 9 x 5 x 5 mm in craniocaudal, transverse and AP dimensions. This corresponds to the abnormality seen on the patient's CT scan of the head. A smaller saccular aneurysm is seen projecting anteriorly and superiorly from the termination of the right supraclinoid internal carotid artery. This is slightly bilobed. It measures 6 mm in greatest diameter. No additional intracranial aneurysm is seen. IMPRESSION: 9 mm saccular aneurysm is seen projecting superiorly from the supraclinoid left internal carotid artery. This corresponds to the abnormality seen on the patient's CT scan of the head. A 6 mm saccular aneurysm is seen projecting superiorly and anteriorly from the supraclinoid right internal carotid artery. Electronically signed by: Moiz Hayes MD (03/15/2018 2:56 PM) [id number]
[2018-03-15 15:00] VITALS: BP 92/61
--- NOTE | 2018-03-15 16:48 | PDOC2 ---
NEUROLOGY CONSULT Date of Admission Date of Admission DATE: 03/15/18 TIME: 16:36 Reason for Consult Reason for Consult: IMPRESSION: Right side numbness, tingling and weakness on 03/14/18. CVA syndrome or Cocaine provoked. CAD, s/p CABG. HTN. Aneurysm 10 mm x 7 mm in [place] ? Cocaine abuse. Hx of Marijuana use. Smoking and drinking. RECOMMENDATIONS/PLAN: Brain MRI/MRA w/o contrast. BP control. Treat medical diseases. HISTORY OF THE PRESENT ILLNESS: 67-y-old AA male patient with history of drug use/abuse came to the ER of [facility] on 03/14/18 stating he had symptoms of numbness, tingling and weakness in his right hand for less than an hour. His symptoms resolved at that time. He was revealed Cocaine positive in system. Past Medical History Cardiovascular: CAD, HTN Past Surgical History CABG Family History Hypertension ALLERGY: Reviewed. MEDICATIONS: Refer to [facility] SOCIAL HISTORY: Home less. He uses/abuses cocaine. Marijuana in past. Alcohol intoxication in past. He smokes and drinks from time to time as he stated. REVIEW OF SYSTEMS: Constitutional: No malnutrition, weight loss, cachexia. Head: No recent traumatic brain or head injury. Skin: No edema, or rash. Ear: No infection. Eyes: No vision loss or color blindness. Nose: No bleeding or purulent discharges. Hearing: No hearing decrease. Neck: No injury. Cardiac: CAD, s/p CABG, HTN. Pulmonary: No COPD. GI: No GI ulcer, GI bleeding. Urinary/genital: No dysuria, incontinence, urinary retention. Endocrinologic: No cousin face, craniofacial dysmorphism, polydactyly. Skeletomuscular: No muscular atrophy, deformity. Neurological: see HP. Psychiatric: Drug use/abuse. Otherwise, not [id number] review of systems. PHYSICAL EXAMINATION: General appearance is in no acute distress. HEENT: Normocephalic and nontraumatic. Eyes, nose, ears, and throat are unremarkable. Neck is supple. No lymphadenopathy. No crepitus. Cardiovascular: S1, S2, regular rate and rhythm. Pulmonary: Clear to auscultation bilaterally. Abdomen: Bowel sounds are positive. Abdomen is soft, nontender, and nondistended. Extremities: No rash, lesions, or edema. No restriction of range of motion NEUROLOGICAL EXAMINATION: Alert. Oriented to time, place and person. PERRL. EOMI. CN: no focal findings. Muscle tone: within normal. Muscle strength: 5 DTR: 2 Plantar reflex: Flexor response bilaterally Gait: At baseline normal. Sensory exam: no abnormal findings. No cerebellar signs elicited. F-T-N test fine. Current Medications Current Medications Current Medications Aspirin (Children'S Aspirin) 324 mg 1X ONCE PO Last administered on at 02:29; Start 03/15/18 at 02:00; Stop 03/15/18 at 02:01; Status DC Lisinopril (Prinivil) 10 mg 1X ONCE PO Last administered on 03/15/18at 02:29; Start 03/15/18 at 02:15; Stop 03/15/18 at 02:16; Status DC Acetaminophen (Tylenol) 500 mg PRN Q6HRS PRN PO MILD PAIN / TEMP; Start at 09:45 Acetaminophen/ Codeine Phosphate (Tylenol #3) 1 tab PRN Q6HRS PRN PO MODERATE PAIN; Start 03/15/18 at 09:45 Ondansetron HCl (Zofran) 4 mg PRN Q6HRS PRN IV NAUSEA/VOMITING; Start at 09:45 Ondansetron HCl (Zofran Odt) 4 mg PRN Q6HRS PRN PO NAUSEA/VOMITING; Start at 09:45 Ibuprofen (Motrin) 400 mg PRN Q6HRS PRN PO INFLAMMATION; Start 03/15/18 at 09: 45 Aspirin (Ecotrin) 81 mg DAILY PO ; Start 03/16/18 at 09:00 Carvedilol (Coreg) 25 mg BIDWMEALS PO Last administered on 03/15/18at 10:21; Start 03/15/18 at 10:30 Active Scripts Active Reported Carvedilol 25 Mg Tablet 1 Tab PO BID [prinivil] Aspir 81 (Aspirin) 81 Mg Tablet. 1 Tab PO DAILY Allergies Allergies: Allergies Coded Allergies Type Severity Reaction Last Updated Verified No Known Drug Allergies 11/09/14 No ROS Review of System The patient denies any associated fevers, chills, headache, ear pain, rhinorrhea , sore throat, stiff neck, productive cough, chest pain, shortness of breath, back or flank pain, abdominal pain, nausea, vomiting, diarrhea, constipation, dysuria, rash, numbness, weakness, tingling, incontinence, difficulty ambulating, or diaphoresis. Physical Exam Physical Exam General: Well developed, well nourished, no acute distress, well appearing HEENT: Pupils equally round and reactive to light, EOMI, no discharge, normal conjunctiva Neck: Supple, no nuchal rigidity, no JVD, trachea midline, no tenderness Cardiac: RRR, no murmurs, no gallops, no rubs Chest/Lungs: CTAB, no wheeze, no rhonchi, no crackles Abdomen: soft, non-distended, no guarding, no peritoneal signs, non-tender Back: No tenderness Extremities: no edema, pulses intact, non-tender,capillary refill <3 sec bilateral upper and lower extremities, Neuro: Alert and oriented x 4, no focal deficits, normal speech Vitals Vitals: Vital Signs Date Time Temp Pulse Resp B/P (MAP) Pulse Ox O2 Delivery O2 Flow Rate FiO2 03/15/18 15:00 98.8 69 18 92/61 (71) 95 Room Air 98.8 Labs Labs Laboratory Tests Test 03/14/18 23:47 03/15/18 00:45 03/15/18 00:48 White Blood Count 4.7 x10^3/uL (4.0-11.0) Red Blood Count 4.75 x10^6/uL (4.30-5.70) Hemoglobin 14.0 g/dL (13.0-17.5) Hematocrit 40.9 % (39.0-53.0) Mean Corpuscular Volume 86 fL (79-100) Mean Corpuscular Hemoglobin 29 pg (25-35) Mean Corpuscular Hemoglobin Concent 34 g/dL (31-37) Red Cell Distribution Width 16.2 % (11.5-14.5) Platelet Count 139 x10^3/uL (140-400) Neutrophils (%) (Auto) 56 % (31-73) Lymphocytes (%) (Auto) 27 % (24-48) Monocytes (%) (Auto) 14 % (0-9) Eosinophils (%) (Auto) 3 % (0-3) Basophils (%) (Auto) 1 % (0-3) Neutrophils # (Auto) 2.6 x10^3uL (1.8-7.7) Lymphocytes # (Auto) 1.3 x10^3/uL (1.0-4.8) Monocytes # (Auto) 0.7 x10^3/uL (0.0-1.1) Eosinophils # (Auto) 0.1 x10^3/uL (0.0-0.7) Basophils # (Auto) 0.0 x10^3/uL (0.0-0.2) Sodium Level 136 mmol/L (136-145) Potassium Level 3.7 mmol/L (3.5-5.1) Chloride Level 100 mmol/L (98-107) Carbon Dioxide Level 26 mmol/L (21-32) Anion Gap 10 (6-14) Blood Urea Nitrogen 14 mg/dL (8-26) Creatinine 0.9 mg/dL (0.7-1.3) Estimated GFR (Cockcroft-Gault) 102.5 BUN/Creatinine Ratio 16 (6-20) Glucose Level 89 mg/dL (70-99) Calcium Level 9.2 mg/dL (8.5-10.1) Total Bilirubin 1.0 mg/dL (0.2-1.0) Aspartate Amino Transf (AST/SGOT) 95 U/L (15-37) Alanine Aminotransferase (ALT/SGPT) 49 U/L (16-63) Alkaline Phosphatase 111 U/L (46-116) Troponin I Quantitative 0.050 ng/mL (0.000-0.055) Total Protein 8.4 g/dL (6.4-8.2) Albumin 3.4 g/dL (3.4-5.0) Albumin/Globulin Ratio 0.7 (1.0-1.7) Thyroid Stimulating Hormone (TSH) 1.485 uIU/mL (0.358-3.74) Urine Opiates Screen Neg (NEG) Urine Methadone Screen Neg (NEG) Urine Barbiturates Neg (NEG) Urine Phencyclidine Screen Neg (NEG) Urine Amphetamine/Methamphetamine Neg (NEG) Urine Benzodiazepines Screen Neg (NEG) Urine Cocaine Screen Pos (NEG) Urine Cannabinoids Screen Neg (NEG) Urine Ethyl Alcohol Neg (NEG) Laboratory Tests Test 03/14/18 23:47 03/15/18 00:45 03/15/18 00:48 White Blood Count 4.7 x10^3/uL (4.0-11.0) Red Blood Count 4.75 x10^6/uL (4.30-5.70) Hemoglobin 14.0 g/dL (13.0-17.5) Hematocrit 40.9 % (39.0-53.0) Mean Corpuscular Volume 86 fL (79-100) Mean Corpuscular Hemoglobin 29 pg (25-35) Mean Corpuscular Hemoglobin Concent 34 g/dL (31-37) Red Cell Distribution Width 16.2 % (11.5-14.5) Platelet Count 139 x10^3/uL (140-400) Neutrophils (%) (Auto) 56 % (31-73) Lymphocytes (%) (Auto) 27 % (24-48) Monocytes (%) (Auto) 14 % (0-9) Eosinophils (%) (Auto) 3 % (0-3) Basophils (%) (Auto) 1 % (0-3) Neutrophils # (Auto) 2.6 x10^3uL (1.8-7.7) Lymphocytes # (Auto) 1.3 x10^3/uL (1.0-4.8) Monocytes # (Auto) 0.7 x10^3/uL (0.0-1.1) Eosinophils # (Auto) 0.1 x10^3/uL (0.0-0.7) Basophils # (Auto) 0.0 x10^3/uL (0.0-0.2) Sodium Level 136 mmol/L (136-145) Potassium Level 3.7 mmol/L (3.5-5.1) Chloride Level 100 mmol/L (98-107) Carbon Dioxide Level 26 mmol/L (21-32) Anion Gap 10 (6-14) Blood Urea Nitrogen 14 mg/dL (8-26) Creatinine 0.9 mg/dL (0.7-1.3) Estimated GFR (Cockcroft-Gault) 102.5 BUN/Creatinine Ratio 16 (6-20) Glucose Level 89 mg/dL (70-99) Calcium Level 9.2 mg/dL (8.5-10.1) Total Bilirubin 1.0 mg/dL (0.2-1.0) Aspartate Amino Transf (AST/SGOT) 95 U/L (15-37) Alanine Aminotransferase (ALT/SGPT) 49 U/L (16-63) Alkaline Phosphatase 111 U/L (46-116) Troponin I Quantitative 0.050 ng/mL (0.000-0.055) Total Protein 8.4 g/dL (6.4-8.2) Albumin 3.4 g/dL (3.4-5.0) Albumin/Globulin Ratio 0.7 (1.0-1.7) Thyroid Stimulating Hormone (TSH) 1.485 uIU/mL (0.358-3.74) Urine Opiates Screen Neg (NEG) Urine Methadone Screen Neg (NEG) Urine Barbiturates Neg (NEG) Urine Phencyclidine Screen Neg (NEG) Urine Amphetamine/Methamphetamine Neg (NEG) Urine Benzodiazepines Screen Neg (NEG) Urine Cocaine Screen Pos (NEG) Urine Cannabinoids Screen Neg (NEG) Urine Ethyl Alcohol Neg (NEG) JORDAN PIRES MD Mar 15, 2018 16:48
--- NOTE | 2018-03-15 16:57 | PDOC2 ---
NEUROLOGY CONSULT Date of Admission Date of Admission DATE: 03/15/18 TIME: 16:54 Reason for Consult Reason for Consult: Right side numbness, tingling and weakness on 03/14/18. CVA syndrome or Cocaine provoked. CAD, s/p CABG. HTN. 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 Cocaine abuse. Hx of Marijuana use. Smoking and drinking. RECOMMENDATIONS/PLAN: Brain MRI/MRA w/o contrast performed. BP control. Treat medical diseases. DC ASA. Suggested be seen in [facility] or [facility]. HISTORY OF THE PRESENT ILLNESS: 67-y-old AA male patient with history of drug use/abuse came to the ER of [facility] on 03/14/18 stating he had symptoms of numbness, tingling and weakness in his right hand for less than an hour. His symptoms resolved at that time. He was revealed Cocaine positive in system. Past Medical History Cardiovascular: CAD, HTN Past Surgical History CABG Family History Hypertension ALLERGY: Reviewed. MEDICATIONS: Refer to [facility] SOCIAL HISTORY: Home less. He uses/abuses cocaine. Marijuana in past. Alcohol intoxication in past. He smokes and drinks from time to time as he stated. REVIEW OF SYSTEMS: Constitutional: No malnutrition, weight loss, cachexia. Head: No recent traumatic brain or head injury. Skin: No edema, or rash. Ear: No infection. Eyes: No vision loss or color blindness. Nose: No bleeding or purulent discharges. Hearing: No hearing decrease. Neck: No injury. Cardiac: CAD, s/p CABG, HTN. Pulmonary: No COPD. GI: No GI ulcer, GI bleeding. Urinary/genital: No dysuria, incontinence, urinary retention. Endocrinologic: No cousin face, craniofacial dysmorphism, polydactyly. Skeletomuscular: No muscular atrophy, deformity. Neurological: see HP. Psychiatric: Drug use/abuse. Otherwise, not [id number] review of systems. PHYSICAL EXAMINATION: General appearance is in no acute distress. HEENT: Normocephalic and nontraumatic. Eyes, nose, ears, and throat are unremarkable. Neck is supple. No lymphadenopathy. No crepitus. Cardiovascular: S1, S2, regular rate and rhythm. Pulmonary: Clear to auscultation bilaterally. Abdomen: Bowel sounds are positive. Abdomen is soft, nontender, and nondistended. Extremities: No rash, lesions, or edema. No restriction of range of motion NEUROLOGICAL EXAMINATION: Alert. Oriented to time, place and person. PERRL. EOMI. CN: no focal findings. Muscle tone: within normal. Muscle strength: 5 DTR: 2 Plantar reflex: Flexor response bilaterally Gait: At baseline normal. Sensory exam: no abnormal findings. No cerebellar signs elicited. F-T-N test fine. Current Medications Current Medications Current Medications Aspirin (Children'S Aspirin) 324 mg 1X ONCE PO Last administered on at 02:29; Start 03/15/18 at 02:00; Stop 03/15/18 at 02:01; Status DC Lisinopril (Prinivil) 10 mg 1X ONCE PO Last administered on 03/15/18at 02:29; Start 03/15/18 at 02:15; Stop 03/15/18 at 02:16; Status DC Acetaminophen (Tylenol) 500 mg PRN Q6HRS PRN PO MILD PAIN / TEMP; Start at 09:45 Acetaminophen/ Codeine Phosphate (Tylenol #3) 1 tab PRN Q6HRS PRN PO MODERATE PAIN; Start 03/15/18 at 09:45 Ondansetron HCl (Zofran) 4 mg PRN Q6HRS PRN IV NAUSEA/VOMITING; Start at 09:45 Ondansetron HCl (Zofran Odt) 4 mg PRN Q6HRS PRN PO NAUSEA/VOMITING; Start at 09:45 Ibuprofen (Motrin) 400 mg PRN Q6HRS PRN PO INFLAMMATION; Start 03/15/18 at 09: 45 Aspirin (Ecotrin) 81 mg DAILY PO ; Start 03/16/18 at 09:00 Carvedilol (Coreg) 25 mg BIDWMEALS PO Last administered on 03/15/18at 10:21; Start 03/15/18 at 10:30 Active Scripts Active Reported Carvedilol 25 Mg Tablet 1 Tab PO BID [prinivil] Aspir 81 (Aspirin) 81 Mg Tablet.dr 1 Tab PO DAILY Allergies Allergies: Allergies Coded Allergies Type Severity Reaction Last Updated Verified No Known Drug Allergies 11/09/14 No ROS Review of System The patient denies any associated fevers, chills, headache, ear pain, rhinorrhea , sore throat, stiff neck, productive cough, chest pain, shortness of breath, back or flank pain, abdominal pain, nausea, vomiting, diarrhea, constipation, dysuria, rash, numbness, weakness, tingling, incontinence, difficulty ambulating, or diaphoresis. Physical Exam Physical Exam General: Well developed, well nourished, no acute distress, well appearing HEENT: Pupils equally round and reactive to light, EOMI, no discharge, normal conjunctiva Neck: Supple, no nuchal rigidity, no JVD, trachea midline, no tenderness Cardiac: RRR, no murmurs, no gallops, no rubs Chest/Lungs: CTAB, no wheeze, no rhonchi, no crackles Abdomen: soft, non-distended, no guarding, no peritoneal signs, non-tender Back: No tenderness Extremities: no edema, pulses intact, non-tender,capillary refill <3 sec bilateral upper and lower extremities, Neuro: Alert and oriented x 4, no focal deficits, normal speech Vitals Vitals: Vital Signs Date Time Temp Pulse Resp B/P (MAP) Pulse Ox O2 Delivery O2 Flow Rate FiO2 03/15/18 15:00 98.8 69 18 92/61 (71) 95 Room Air 98.8 Labs Labs Laboratory Tests Test 03/14/18 23:47 03/15/18 00:45 03/15/18 00:48 White Blood Count 4.7 x10^3/uL (4.0-11.0) Red Blood Count 4.75 x10^6/uL (4.30-5.70) Hemoglobin 14.0 g/dL (13.0-17.5) Hematocrit 40.9 % (39.0-53.0) Mean Corpuscular Volume 86 fL (79-100) Mean Corpuscular Hemoglobin 29 pg (25-35) Mean Corpuscular Hemoglobin Concent 34 g/dL (31-37) Red Cell Distribution Width 16.2 % (11.5-14.5) Platelet Count 139 x10^3/uL (140-400) Neutrophils (%) (Auto) 56 % (31-73) Lymphocytes (%) (Auto) 27 % (24-48) Monocytes (%) (Auto) 14 % (0-9) Eosinophils (%) (Auto) 3 % (0-3) Basophils (%) (Auto) 1 % (0-3) Neutrophils # (Auto) 2.6 x10^3uL (1.8-7.7) Lymphocytes # (Auto) 1.3 x10^3/uL (1.0-4.8) Monocytes # (Auto) 0.7 x10^3/uL (0.0-1.1) Eosinophils # (Auto) 0.1 x10^3/uL (0.0-0.7) Basophils # (Auto) 0.0 x10^3/uL (0.0-0.2) Sodium Level 136 mmol/L (136-145) Potassium Level 3.7 mmol/L (3.5-5.1) Chloride Level 100 mmol/L (98-107) Carbon Dioxide Level 26 mmol/L (21-32) Anion Gap 10 (6-14) Blood Urea Nitrogen 14 mg/dL (8-26) Creatinine 0.9 mg/dL (0.7-1.3) Estimated GFR (Cockcroft-Gault) 102.5 BUN/Creatinine Ratio 16 (6-20) Glucose Level 89 mg/dL (70-99) Calcium Level 9.2 mg/dL (8.5-10.1) Total Bilirubin 1.0 mg/dL (0.2-1.0) Aspartate Amino Transf (AST/SGOT) 95 U/L (15-37) Alanine Aminotransferase (ALT/SGPT) 49 U/L (16-63) Alkaline Phosphatase 111 U/L (46-116) Troponin I Quantitative 0.050 ng/mL (0.000-0.055) Total Protein 8.4 g/dL (6.4-8.2) Albumin 3.4 g/dL (3.4-5.0) Albumin/Globulin Ratio 0.7 (1.0-1.7) Thyroid Stimulating Hormone (TSH) 1.485 uIU/mL (0.358-3.74) Urine Opiates Screen Neg (NEG) Urine Methadone Screen Neg (NEG) Urine Barbiturates Neg (NEG) Urine Phencyclidine Screen Neg (NEG) Urine Amphetamine/Methamphetamine Neg (NEG) Urine Benzodiazepines Screen Neg (NEG) Urine Cocaine Screen Pos (NEG) Urine Cannabinoids Screen Neg (NEG) Urine Ethyl Alcohol Neg (NEG) Laboratory Tests Test 03/14/18 23:47 03/15/18 00:45 03/15/18 00:48 White Blood Count 4.7 x10^3/uL (4.0-11.0) Red Blood Count 4.75 x10^6/uL (4.30-5.70) Hemoglobin 14.0 g/dL (13.0-17.5) Hematocrit 40.9 % (39.0-53.0) Mean Corpuscular Volume 86 fL (79-100) Mean Corpuscular Hemoglobin 29 pg (25-35) Mean Corpuscular Hemoglobin Concent 34 g/dL (31-37) Red Cell Distribution Width 16.2 % (11.5-14.5) Platelet Count 139 x10^3/uL (140-400) Neutrophils (%) (Auto) 56 % (31-73) Lymphocytes (%) (Auto) 27 % (24-48) Monocytes (%) (Auto) 14 % (0-9) Eosinophils (%) (Auto) 3 % (0-3) Basophils (%) (Auto) 1 % (0-3) Neutrophils # (Auto) 2.6 x10^3uL (1.8-7.7) Lymphocytes # (Auto) 1.3 x10^3/uL (1.0-4.8) Monocytes # (Auto) 0.7 x10^3/uL (0.0-1.1) Eosinophils # (Auto) 0.1 x10^3/uL (0.0-0.7) Basophils # (Auto) 0.0 x10^3/uL (0.0-0.2) Sodium Level 136 mmol/L (136-145) Potassium Level 3.7 mmol/L (3.5-5.1) Chloride Level 100 mmol/L (98-107) Carbon Dioxide Level 26 mmol/L (21-32) Anion Gap 10 (6-14) Blood Urea Nitrogen 14 mg/dL (8-26) Creatinine 0.9 mg/dL (0.7-1.3) Estimated GFR (Cockcroft-Gault) 102.5 BUN/Creatinine Ratio 16 (6-20) Glucose Level 89 mg/dL (70-99) Calcium Level 9.2 mg/dL (8.5-10.1) Total Bilirubin 1.0 mg/dL (0.2-1.0) Aspartate Amino Transf (AST/SGOT) 95 U/L (15-37) Alanine Aminotransferase (ALT/SGPT) 49 U/L (16-63) Alkaline Phosphatase 111 U/L (46-116) Troponin I Quantitative 0.050 ng/mL (0.000-0.055) Total Protein 8.4 g/dL (6.4-8.2) Albumin 3.4 g/dL (3.4-5.0) Albumin/Globulin Ratio 0.7 (1.0-1.7) Thyroid Stimulating Hormone (TSH) 1.485 uIU/mL (0.358-3.74) Urine Opiates Screen Neg (NEG) Urine Methadone Screen Neg (NEG) Urine Barbiturates Neg (NEG) Urine Phencyclidine Screen Neg (NEG) Urine Amphetamine/Methamphetamine Neg (NEG) Urine Benzodiazepines Screen Neg (NEG) Urine Cocaine Screen Pos (NEG) Urine Cannabinoids Screen Neg (NEG) Urine Ethyl Alcohol Neg (NEG) JORDAN PIRES MD Mar 15, 2018 16:57
[2018-03-15 19:40] VITALS: BP 103/68
[2018-03-15 23:52] VITALS: BP 113/63
[2018-03-16 03:15] VITALS: BP 108/68
[2018-03-16 04:10] LABS: CHOLESTEROL/HDL RATIO 4.6
[2018-03-16 07:45] VITALS: BP 110/70
[2018-03-16] MEDS: ASPIRIN ENTERIC COATED 81 MG TABLET.DR. PO SCH (09:31)
[2018-03-16] MEDS: CARVEDILOL 12.5 MG TABLET. PO SCH ×2 (09:33→17:50)
[2018-03-16 11:36] VITALS: BP 107/68
--- NOTE | 2018-03-16 12:51 | PDOC ---
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 This corresponds to the abnormality seen on the patient's CT scan of the head. A 6 mm saccular aneurysm is seen projecting superiorly and anteriorly from the supraclinoid right internal carotid artery. Discussed with neurology-neurosurgery is not addressing this Issue/ not their field I am attempting if there is any to transfer to or [facility] for IR PLAN: Awaiting callback to speak with the Neuro IR if there is any need for transfer or intervention for this 9 mm saccular aneurysm with no acute CVA in present admission and minimal symptoms Social work has seen patient, given homeless resources But patient isn't interested in this, might be able to have a friend or family member take him in on discharge Vitals Vitals Vital Signs Date Time Temp Pulse Resp B/P (MAP) Pulse Ox O2 Delivery O2 Flow Rate FiO2 03/16/18 11:36 97.9 81 18 107/68 (81) 98 Room Air 97.9 Physical Exam General: Alert, Oriented X3, Cooperative, No acute distress Heart: Regular rate, Normal S1, Normal S2, No murmurs Lungs: Clear Abdomen: Normal bowel sounds, Soft, No tenderness, No hepatosplenomegaly, No masses Extremities: No clubbing, No cyanosis, No edema, Normal pulses, No tenderness/ swelling Skin: No rashes, No breakdown, No significant lesion Labs LABS Laboratory Tests Test 03/16/18 03:25 Triglycerides Level 136 mg/dL (0-150) Cholesterol Level 119 mg/dL (0-200) LDL Cholesterol, Calculated 66 mg/dL (0-100) VLDL Cholesterol, Calculated 27 mg/dL (0-40) Non-HDL Cholesterol Calculated 93 mg/dL (0-129) HDL Cholesterol 26 mg/dL (40-60) Cholesterol/HDL Ratio 4.6 Review of Systems Review of Systems A 14 point ROS was completed with the following noted as positive: Other systems reviewed and negative. \CONSTITUTIONAL: No fever or chills EYES: No recent changes SKIN: No rash or itching CARDIOVASCULAR: No chest pain, syncope, palpitations, or edema RESPIRATORY: No SOB or cough GASTROINTESTINAL: No nausea, vomiting or abdominal pain NEUROLOGICAL: No headaches or weakness ENDOCRINE: No cold or heat intolerance GENITOURINARY: No urgency or frequency of urination MUSCULOSKELETAL: No back pain or joint pain LYMPHATICS: No enlarged lymph nodes PSYCHIATRIC: No anxiety or depression Assessment and Plan Assessmemt and Plan Problems Medical Problems: (1) Hypertension Status: Acute (2) TIA (transient ischemic attack) Status: Acute Comment Review of Relevant I have reviewed the following items arti (where applicable) has been applied. Labs Laboratory Tests Test 03/14/18 23:47 03/15/18 00:45 03/15/18 00:48 03/16/18 03:25 White Blood Count 4.7 x10^3/uL (4.0-11.0) Red Blood Count 4.75 x10^6/uL (4.30-5.70) Hemoglobin 14.0 g/dL (13.0-17.5) Hematocrit 40.9 % (39.0-53.0) Mean Corpuscular Volume 86 fL (79-100) Mean Corpuscular Hemoglobin 29 pg (25-35) Mean Corpuscular Hemoglobin Concent 34 g/dL (31-37) Red Cell Distribution Width 16.2 % (11.5-14.5) Platelet Count 139 x10^3/uL (140-400) Neutrophils (%) (Auto) 56 % (31-73) Lymphocytes (%) (Auto) 27 % (24-48) Monocytes (%) (Auto) 14 % (0-9) Eosinophils (%) (Auto) 3 % (0-3) Basophils (%) (Auto) 1 % (0-3) Neutrophils # (Auto) 2.6 x10^3uL (1.8-7.7) Lymphocytes # (Auto) 1.3 x10^3/uL (1.0-4.8) Monocytes # (Auto) 0.7 x10^3/uL (0.0-1.1) Eosinophils # (Auto) 0.1 x10^3/uL (0.0-0.7) Basophils # (Auto) 0.0 x10^3/uL (0.0-0.2) Sodium Level 136 mmol/L (136-145) Potassium Level 3.7 mmol/L (3.5-5.1) Chloride Level 100 mmol/L (98-107) Carbon Dioxide Level 26 mmol/L (21-32) Anion Gap 10 (6-14) Blood Urea Nitrogen 14 mg/dL (8-26) Creatinine 0.9 mg/dL (0.7-1.3) Estimated GFR (Cockcroft-Gault) 102.5 BUN/Creatinine Ratio 16 (6-20) Glucose Level 89 mg/dL (70-99) Calcium Level 9.2 mg/dL (8.5-10.1) Total Bilirubin 1.0 mg/dL (0.2-1.0) Aspartate Amino Transf (AST/SGOT) 95 U/L (15-37) Alanine Aminotransferase (ALT/SGPT) 49 U/L (16-63) Alkaline Phosphatase 111 U/L (46-116) Troponin I Quantitative 0.050 ng/mL (0.000-0.055) Total Protein 8.4 g/dL (6.4-8.2) Albumin 3.4 g/dL (3.4-5.0) Albumin/Globulin Ratio 0.7 (1.0-1.7) Thyroid Stimulating Hormone (TSH) 1.485 uIU/mL (0.358-3.74) Urine Opiates Screen Neg (NEG) Urine Methadone Screen Neg (NEG) Urine Barbiturates Neg (NEG) Urine Phencyclidine Screen Neg (NEG) Urine Amphetamine/Methamphetamine Neg (NEG) Urine Benzodiazepines Screen Neg (NEG) Urine Cocaine Screen Pos (NEG) Urine Cannabinoids Screen Neg (NEG) Urine Ethyl Alcohol Neg (NEG) Triglycerides Level 136 mg/dL (0-150) Cholesterol Level 119 mg/dL (0-200) LDL Cholesterol, Calculated 66 mg/dL (0-100) VLDL Cholesterol, Calculated 27 mg/dL (0-40) Non-HDL Cholesterol Calculated 93 mg/dL (0-129) HDL Cholesterol 26 mg/dL (40-60) Cholesterol/HDL Ratio 4.6 Laboratory Tests Test 03/16/18 03:25 Triglycerides Level 136 mg/dL (0-150) Cholesterol Level 119 mg/dL (0-200) LDL Cholesterol, Calculated 66 mg/dL (0-100) VLDL Cholesterol, Calculated 27 mg/dL (0-40) Non-HDL Cholesterol Calculated 93 mg/dL (0-129) HDL Cholesterol 26 mg/dL (40-60) Cholesterol/HDL Ratio 4.6 Medications Current Medications Aspirin (Children'S Aspirin) 324 mg 1X ONCE PO Last administered on at 02:29; Start 03/15/18 at 02:00; Stop 03/15/18 at 02:01; Status DC Lisinopril (Prinivil) 10 mg 1X ONCE PO Last administered on 03/15/18at 02:29; Start 03/15/18 at 02:15; Stop 03/15/18 at 02:16; Status DC Acetaminophen (Tylenol) 500 mg PRN Q6HRS PRN PO MILD PAIN / TEMP; Start at 09:45 Acetaminophen/ Codeine Phosphate (Tylenol #3) 1 tab PRN Q6HRS PRN PO MODERATE PAIN; Start 03/15/18 at 09:45 Ondansetron HCl (Zofran) 4 mg PRN Q6HRS PRN IV NAUSEA/VOMITING; Start at 09:45 Ondansetron HCl (Zofran Odt) 4 mg PRN Q6HRS PRN PO NAUSEA/VOMITING; Start at 09:45 Ibuprofen (Motrin) 400 mg PRN Q6HRS PRN PO INFLAMMATION; Start 03/15/18 at 09: 45 Aspirin (Ecotrin) 81 mg DAILY PO Last administered on 03/16/18at 09:31; Start 03/16/18 at 09:00 Carvedilol (Coreg) 25 mg BIDWMEALS PO Last administered on 03/16/18at 09:33; Start 03/15/18 at 10:30 Active Scripts Active Reported Carvedilol 25 Mg Tablet 1 Tab PO BID [prinivil] Aspir 81 (Aspirin) 81 Mg Tablet. 1 Tab PO DAILY Vitals/I & O Vital Sign - Last 24 Hours 03/15/18 03/15/18 03/15/18 03/15/18 15:00 17:28 19:40 20:00 Temp 98.8 97.8 98.8 97.8 Pulse 69 69 65 Resp 18 20 B/P (MAP) 92/61 (71) 92/61 103/68 (80) Pulse Ox 95 99 O2 Delivery Room Air Room Air Room Air 03/15/18 03/16/18 03/16/18 03/16/18 23:52 03:15 07:45 08:00 Temp 97.9 98.0 97.5 97.9 98.0 97.5 Pulse 60 70 83 Resp 18 18 18 B/P (MAP) 113/63 (80) 108/68 (81) 110/70 (83) Pulse Ox 96 98 96 O2 Delivery Room Air Room Air Room Air Room Air 03/16/18 03/16/18 09:33 11:36 Temp 97.9 97.9 Pulse 65 81 Resp 18 B/P (MAP) 122/78 107/68 (81) Pulse Ox 98 O2 Delivery Room Air Intake and Output 03/15/18 03/15/18 03/16/18 15:00 23:00 07:00 Intake Total 300 ml 930 ml Balance 300 ml 930 ml RADHA ZAMUDIO MD Mar 16, 2018 12:51
--- NOTE | 2018-03-16 14:25 | PDOC ---
Provider Note Provider Note (please see full dictation) 67 yo male was admitted with transient right arm tingling. He was incidentally noted to have distal bilateral internal carotid aneurysms (intracranial). He has history of substance abuse. I discussed the importance of good blood pressure and abstinence from cocaine use to decrease risk of aneurysm growth and rupture. Would benefit from Neuro Surgery and possible Neurointerventional Radiology. No indication for Peripheral Vascular surgery at this time. BUFFY STEPHENSON MD Mar 16, 2018 14:25
[2018-03-16 15:12] VITALS: BP 117/72
--- NOTE | 2018-03-16 16:19 | PDOC ---
PROGRESS NOTES Assessment Assessment Right side numbness, tingling and weakness on 03/14/18. CAD, s/p CABG. HTN. 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 Cocaine abuse, Hx. Marijuana use/abuse. Smoking and drinking. No evidence of acute CVA this time. RECOMMENDATIONS/PLAN: BP control. Treat medical diseases. Suggested further evaluation and treatment in [facility] or [facility]. HISTORY OF THE PRESENT ILLNESS: 67-y-old AA male patient with history of drug use/abuse came to the ER of [facility] on 03/14/18 stating he had symptoms of numbness, tingling and weakness in his right hand for less than an hour. His symptoms resolved at that time. No recurrence. Past Medical History Cardiovascular: CAD, HTN Past Surgical History CABG Family History Hypertension ALLERGY: Reviewed. MEDICATIONS: Refer to [facility] SOCIAL HISTORY: Home less. He uses/abuses cocaine. Marijuana in past. Alcohol intoxication in past. He smokes and drinks from time to time as he stated. REVIEW OF SYSTEMS: Constitutional: No malnutrition, weight loss, cachexia. Head: No recent traumatic brain or head injury. Skin: No edema, or rash. Ear: No infection. Eyes: No vision loss or color blindness. Nose: No bleeding or purulent discharges. Hearing: No hearing decrease. Neck: No injury. Cardiac: CAD, s/p CABG, HTN. Pulmonary: No COPD. GI: No GI ulcer, GI bleeding. Urinary/genital: No dysuria, incontinence, urinary retention. Endocrinologic: No cousin face, craniofacial dysmorphism, polydactyly. Skeletomuscular: No muscular atrophy, deformity. Neurological: see HP. Psychiatric: Drug use/abuse. Otherwise, not [id number] review of systems. PHYSICAL EXAMINATION: General appearance is in no acute distress. HEENT: Normocephalic and nontraumatic. Eyes, nose, ears, and throat are unremarkable. Neck is supple. No lymphadenopathy. No crepitus. Cardiovascular: S1, S2, regular rate and rhythm. Pulmonary: Clear to auscultation bilaterally. Abdomen: Bowel sounds are positive. Abdomen is soft, nontender, and nondistended. Extremities: No rash, lesions, or edema. No restriction of range of motion NEUROLOGICAL EXAMINATION: Alert. Oriented to time, place and person. PERRL. EOMI. CN: no focal findings. Muscle tone: within normal. Muscle strength: 5 DTR: 2 Plantar reflex: Flexor response bilaterally Gait: At baseline normal. Sensory exam: no abnormal findings. No cerebellar signs elicited. F-T-N test fine. Objective Objective Vital Signs Date Time Temp Pulse Resp B/P (MAP) Pulse Ox O2 Delivery O2 Flow Rate FiO2 03/16/18 15:12 97.7 92 18 117/72 (87) 98 Room Air 97.7 Intake and Output 03/16/18 07:00 Intake Total 1230 ml Balance 1230 ml Intake Oral 1230 ml # Voids 1 Vitals Signs Vitals VS - Last 72 Hours, by Label Date Time Temp Pulse Resp B/P (MAP) Pulse Ox O2 Delivery O2 Flow Rate FiO2 03/16/18 15:12 97.7 92 18 117/72 (87) 98 Room Air 97.7 03/16/18 11:36 97.9 81 18 107/68 (81) 98 Room Air 97.9 03/16/18 09:33 65 122/78 03/16/18 08:00 Room Air 03/16/18 07:45 97.5 83 18 110/70 (83) 96 Room Air 97.5 03/16/18 03:15 98.0 70 18 108/68 (81) 98 Room Air 98.0 03/15/18 23:52 97.9 60 18 113/63 (80) 96 Room Air 97.9 03/15/18 20:00 Room Air 03/15/18 19:40 97.8 65 20 103/68 (80) 99 Room Air 97.8 03/15/18 17:28 69 92/61 03/15/18 15:00 98.8 69 18 92/61 (71) 95 Room Air 98.8 03/15/18 11:00 98.8 72 18 131/72 (91) 97 Room Air 98.8 03/15/18 10:21 78 114/73 03/15/18 08:00 Room Air 03/15/18 07:00 97.7 78 18 114/73 (87) 96 Room Air 97.7 Laboratory Laboratory Laboratory Tests Test 03/16/18 03:25 Triglycerides Level 136 mg/dL (0-150) Cholesterol Level 119 mg/dL (0-200) LDL Cholesterol, Calculated 66 mg/dL (0-100) VLDL Cholesterol, Calculated 27 mg/dL (0-40) Non-HDL Cholesterol Calculated 93 mg/dL (0-129) HDL Cholesterol 26 mg/dL (40-60) Cholesterol/HDL Ratio 4.6 Medication Medications Current Medications Aspirin (Ecotrin) 81 mg DAILY PO Last administered on 03/16/18at 09:31; Start 03/16/18 at 09:00 Comment Review of Relevant I have reviewed the following items arti (where applicable) has been applied. JORDAN PIRES MD Mar 16, 2018 16:19
[2018-03-16 19:44] VITALS: BP 133/70
[2018-03-16 23:00] VITALS: BP 128/86
[2018-03-17 03:20] VITALS: BP 141/84
--- NOTE | 2018-03-17 03:55 | CONS ---
DATE OF CONSULTATION: 03/16/2018 CHIEF COMPLAINT: Transient right arm tingling. HISTORY OF PRESENT ILLNESS: The patient is a 67-year-old male with history of hypertension and coronary artery disease who presents with a transient tingling discomfort in his right arm. He also noted some bilateral leg weakness approximately 1-2 weeks ago. He notes both of these episodes lasted a short period of time. He denies any other episodes of unilateral weakness, numbness, visual loss, speech change, other TIA or stroke symptoms. MR imaging showed evidence of distal internal carotid arteries bilaterally. The left distal internal carotid artery aneurysm measured 9 mm in maximum diameter whereas the right measured approximately 6 mm in maximum diameter. There was no evidence of significant extracranial carotid vascular disease. PAST MEDICAL HISTORY: 1. Suspected transient ischemic attack with transient right arm tingling. 2. Hypertension. 3. Bilateral internal carotid artery aneurysms. It is unclear whether this is contributing to his TIA symptoms. 4. Substance abuse. 5. Atherosclerotic coronary artery disease. PAST SURGICAL HISTORY: Coronary artery bypass graft. CURRENT MEDICATIONS: Aspirin 81 mg q. day, Coreg 25 mg b.i.d., ibuprofen p.r.n., ondansetron p.r.n. ALLERGIES: No known drug allergies. SOCIAL HISTORY: He continues to smoke a few cigarettes a week. He uses crack cocaine approximately once a week. He notes very occasional alcohol use. He usually has 1 beer every 3-4 weeks. FAMILY HISTORY: Significant for a grandson who of a cerebral aneurysm. REVIEW OF SYSTEMS: No recent fevers, chills, chest pain or shortness of breath. He reports a transient right arm weakness and bilateral leg weakness recently. He denies any difficulty urinating. He denies any nausea, vomiting, diarrhea, constipation, hematochezia or melena or other GI symptoms. He denies any areas of buttocks pain. PHYSICAL EXAMINATION: GENERAL: This is a thin male in no acute distress. NECK: Supple. No lymphadenopathy. CARDIOVASCULAR: Regular rhythm. ABDOMEN: Soft, nontender, nondistended, no palpable masses. EXTREMITIES: He has palpable radial and femoral pulses. Pedal pulses are much weaker. No significant areas of skin breakdown. IMAGING: MR imaging as noted above. LABORATORY DATA: Reviewed. IMPRESSION: 1. Bilateral distal internal carotid artery aneurysms (9 mm on the left and 6 mm on the right). 2. Hypertension. 3. Polysubstance abuse. 4. Coronary artery disease. RECOMMENDATIONS: 1. Strongly encouraged him in smoking cessation as well as good blood pressure control. Encouraged him to abstain from any cocaine use due to concomitant hypertension. 2. Would benefit from Neurosurgery and/or Neuro Interventional Radiology evaluation. I discussed indications for evaluation and potential treatment. There are no indications for peripheral vascular intervention at this time. BUFFY STEPHENSON MD DR: SHAKEEL/eli JOB#: [id number] / [id number]
[2018-03-17 07:54] VITALS: BP 107/72
[2018-03-17] MEDS: ASPIRIN ENTERIC COATED 81 MG TABLET.DR. PO SCH (08:35)
[2018-03-17] MEDS: CARVEDILOL 12.5 MG TABLET. PO SCH (08:36)
--- NOTE | 2018-03-17 08:58 | RAD ---
Examination: DOPPLER CAROTID BILAT History: NUMBNESS/TINGLING OF BILATERAL ARMS. PT DOES HAVE HYPERTENSION AND IS A SMOKER. PT ALSO STATES HE HAD A PRIOR TRIPLE BYPASS SURGERY ON HEART. Comparison/Correlation: None Findings: Duplex carotid ultrasound examination was performed. Grayscale, color Doppler, and spectral Doppler imaging was performed. Significant interval thickening of the common carotid arteries bilaterally noted. Mild plaque within the internal and external carotid arteries noted. Right common carotid artery peak systolic velocity 101.2 cm/s, end-diastolic velocity 23.1 cm/s Right internal carotid artery peak systolic velocity 94.3 cm/s, end-diastolic velocity 20.8 cm/s Right external carotid artery peak systolic velocity 112.4 cm/s Left common carotid peak systolic velocity 103.8 cm/s, end-diastolic velocity 21.8 cm/s Left internal carotid artery peak systolic velocity 77.7 cm/s, end-diastolic velocity 26.4 cm/s Left external carotid artery 101 cm/s peak systolic velocity Right internal carotid artery/right common carotid artery peak systolic velocity ratio is 0.93. Left internal carotid artery/left common carotid artery peak systolic velocity ratio is 0.76. Impression: No evidence of carotid artery stenosis. Intimal thickening and plaque however are seen. Electronically signed by: Hudson Pratt MD (03/17/2018 8:55 AM) [facility]
[2018-03-17 11:19] VITALS: BP 99/64
[2018-03-17] MEDS ORDERED: CARV25TA2 PO (11:46)
[2018-03-17] MEDS ORDERED: ASPI325T11 PO (11:46)
--- NOTE | 2018-03-17 11:49 | PDOC3 ---
Discharge Summary Visit Information Date of Admission: Mar 15, 2018 Date of Discharge: Mar 17, 2018 Admitting Diagnosis Comment: Right-handed tingling numbness weakness-transient, resolved TIA History CAD/YAML-[id number]-[id number] stable controlled AGe related brain loss on CT ANuerysmal diltn left ICA, [place] of hand - NO NEED FOR NEURO IR INTERVENTION - per [facility] HOmelessness SP Final Diagnosis Problems Medical Problems: (1) Hypertension Status: Acute (2) TIA (transient ischemic attack) Status: Acute Brief Hospital Course Allergies Allergies Coded Allergies Type Severity Reaction Last Updated Verified No Known Drug Allergies 11/09/14 No Vital Signs Vital Signs Date Time Temp Pulse Resp B/P (MAP) Pulse Ox O2 Delivery O2 Flow Rate FiO2 03/17/18 11:19 97.7 80 17 99/64 (76) 97 Room Air 97.7 Lab Results Laboratory Tests Test 03/16/18 03:25 Triglycerides Level 136 mg/dL (0-150) Cholesterol Level 119 mg/dL (0-200) LDL Cholesterol, Calculated 66 mg/dL (0-100) VLDL Cholesterol, Calculated 27 mg/dL (0-40) Non-HDL Cholesterol Calculated 93 mg/dL (0-129) HDL Cholesterol 26 mg/dL (40-60) Cholesterol/HDL Ratio 4.6 Brief Hospital Course Mr. John is a 67 old Tajik Tajik male who is essentially homeless, admitted because of transient right hand weakness numbness. Diagnosed with TIA. Workup for acute CVA is negative. 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 Neurosurgery consulted along with vasc surgery who had no further recs but advised maybe transfer to see if there is any intervention needed to be done. I did discuss with neurosurgery [facility], in the light of TIA symptoms only, no acute CVA, incidental finding of a 9 mm saccular aneurysm, incidental finding does not explaining the symptoms, no need for further neuro IR intervention, but did recommend a Dr. Tiffany Garza. Number attached needed if any symptoms get worse or follow-up needed Consults neurosurgery, neurology, vasc surgery Procedures performed none just MRI/MRA of the brain Ultrasound carotids negative for stenosis Medications aspirin 325, continue beta alli 25 twice a day which I have prescribed Time spent discharging 40 minutes cumulative in education counseling A friend or brother will take him in Discharge Information Condition at Discharge: Improved, Stable Disposition/Orders: D/C to Home Scheduled Aspirin (Aspir 81) 81 Mg Tablet.dr, 1 TAB PO DAILY, #30 Ref 5 (Reported) Entered as Reported by: ROSALIO JAVED on 11/10/142123 Last Action: Continued on 03/15/18 09 by RADHA ZAMUDIO Aspirin (Aspirin Ec) 325 Mg Tablet.dr, 1 TAB PO DAILY, #30 Ref 5 Prescribed by: RADHA ZAMUDIO on 03/17/18 1146 Carvedilol (Carvedilol) 25 Mg Tablet, 1 TAB PO BID, #60 Prescribed by: RADHA ZAMUDIO on 03/17/18 1146 Miscellaneous Medications [prinivil] , (Reported) Entered as Reported by: Trinidad Walker on 03/15/18420 Last Action: HELD on 03/15/18945 by RADHA GALVAN MD Mar 17, 2018 11:49
--- NOTE | 2018-03-17 13:21 | PDOC ---
PROGRESS NOTES Assessment Assessment Right side numbness, tingling and weakness on 03/14/18. CAD, s/p CABG. HTN. 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 Cocaine abuse, Hx. Marijuana use/abuse. Smoking and drinking. No evidence of acute CVA this time. RECOMMENDATIONS/PLAN: BP control. Treat medical diseases. Patient education for drug abstinence. Suggested further evaluation and treatment in [facility]. Obtained reply from [facility] on 03/17/18 that no further treatment and intervention to offer and they suggested FU with [facility] as needed. HISTORY OF THE PRESENT ILLNESS: 67-y-old AA male patient with history of drug use/abuse came to the ER of [facility] on 03/14/18 stating he had symptoms of numbness, tingling and weakness in his right hand for less than an hour. His symptoms resolved at that time. No recurrence. Past Medical History Cardiovascular: CAD, HTN Past Surgical History CABG Family History Hypertension ALLERGY: Reviewed. MEDICATIONS: Refer to [facility] SOCIAL HISTORY: Home less. He uses/abuses cocaine. Marijuana in past. Alcohol intoxication in past. He smokes and drinks from time to time as he stated. REVIEW OF SYSTEMS: Constitutional: No malnutrition, weight loss, cachexia. Head: No recent traumatic brain or head injury. Skin: No edema, or rash. Ear: No infection. Eyes: No vision loss or color blindness. Nose: No bleeding or purulent discharges. Hearing: No hearing decrease. Neck: No injury. Cardiac: CAD, s/p CABG, HTN. Pulmonary: No COPD. GI: No GI ulcer, GI bleeding. Urinary/genital: No dysuria, incontinence, urinary retention. Endocrinologic: No cousin face, craniofacial dysmorphism, polydactyly. Skeletomuscular: No muscular atrophy, deformity. Neurological: see HP. Psychiatric: Drug use/abuse. Otherwise, not [id number] review of systems. PHYSICAL EXAMINATION: General appearance is in no acute distress. HEENT: Normocephalic and nontraumatic. Eyes, nose, ears, and throat are unremarkable. Neck is supple. No lymphadenopathy. No crepitus. Cardiovascular: S1, S2, regular rate and rhythm. Pulmonary: Clear to auscultation bilaterally. Abdomen: Bowel sounds are positive. Abdomen is soft, nontender, and nondistended. Extremities: No rash, lesions, or edema. No restriction of range of motion NEUROLOGICAL EXAMINATION: Alert. Oriented to time, place and person. PERRL. EOMI. CN: no focal findings. Muscle tone: within normal. Muscle strength: 5 DTR: 2 Plantar reflex: Flexor response bilaterally Gait: At baseline normal. Sensory exam: no abnormal findings. No cerebellar signs elicited. F-T-N test fine. Objective Objective Vital Signs Date Time Temp Pulse Resp B/P (MAP) Pulse Ox O2 Delivery O2 Flow Rate FiO2 03/17/18 11:19 97.7 80 17 99/64 (76) 97 Room Air 97.7 Intake and Output 03/17/18 07:00 Intake Total 2000 ml Balance 2000 ml Intake Oral 2000 ml # Voids 6 Vitals Signs Vitals VS - Last 72 Hours, by Label Date Time Temp Pulse Resp B/P (MAP) Pulse Ox O2 Delivery O2 Flow Rate FiO2 03/17/18 11:19 97.7 80 17 99/64 (76) 97 Room Air 97.7 03/17/18 08:36 83 107/72 03/17/18 08:00 Room Air 03/17/18 07:54 97.7 83 18 107/72 (84) 99 Room Air 97.7 03/17/18 03:20 98.0 74 18 141/84 (103) 100 Room Air 98.0 03/16/18 23:00 98.1 67 16 128/86 (100) Room Air 98.1 03/16/18 22:47 Room Air 03/16/18 20:10 Room Air 03/16/18 19:44 97.7 65 18 133/70 (91) 99 Room Air 97.7 03/16/18 17:50 65 132/93 03/16/18 15:12 97.7 92 18 117/72 (87) 98 Room Air 97.7 03/16/18 11:36 97.9 81 18 107/68 (81) 98 Room Air 97.9 03/16/18 09:33 65 122/78 03/16/18 08:00 Room Air 03/16/18 07:45 97.5 83 18 110/70 (83) 96 Room Air 97.5 Comment Review of Relevant I have reviewed the following items arti (where applicable) has been applied. JORDAN PIRES MD Mar 17, 2018 13:20
== END 2018-03-17 14:35 | disposition home or self-care (01) | DRG 69 ==
LOC: ER 23:35 → 1 WEST ICU 03-15 01:44 → 6 SOUTH 03-15 03:14
PROVIDERS: ADMIT Family Medicine; ATTEND Family Medicine
DX: G45.9 Transient cerebral ischemic attack, unspecified (principal); F14.10 Cocaine abuse, uncomplicated; F17.210 Nicotine dependence, cigarettes, uncomplicated; I10 Essential (primary) hypertension; I25.10 Atherosclerotic heart disease of native coronary artery without angina pectoris; I67.1 Cerebral aneurysm, nonruptured; Z59.0 Homelessness; F12.90 Cannabis use, unspecified, uncomplicated; G43.909 Migraine, unspecified, not intractable, without status migrainosus; F10.129 Alcohol abuse with intoxication, unspecified; Z79.82 Long term (current) use of aspirin; Z82.49 Family history of ischemic heart disease and other diseases of the circulatory system; Z95.1 Presence of aortocoronary bypass graft; Z79.899 Other long term (current) drug therapy
CPT/HCPCS: 36415; 70450; 70544; 70551; 71045; 80053; 80061; 80307; 84443; 84484; 85025; 93005; 93880; 99285-25; G0479

== ENCOUNTER 2019-11-03 17:55 | Emergency (ER) | payer SELFPAY ==
[~2019-11-03] VITALS: Ht 160 cm; Wt 53.7 kg
[~2019-11-03 17:55] MED LIST changes: +ASPI325T11 PO; +CARV25TA2 PO; +prinivil
--- NOTE | 2019-11-03 18:14 | PHYS DOC ---
Past Medical History Past Medical History: CAD, Hypertension Past Surgical History: Coronary Bypass Surgery Smoking Status: Light Tobacco Smoker Alcohol Use: Occasionally Drug Use: Cocaine, Marijuana General Adult EDM: Chief Complaint: SHORTNESS OF BREATH HPI: HPI: Patient is a 69 year old male who presents with complaint of chest pain and shortness of breath that started a few hours ago. He states that the pain lasted for just a few minutes and then it resolved. He states that it was just like a dull ache and did not seem to have any exacerbating or alleviating factors. He states that he still has just a little bit of the shortness of breath left. He denies any cough or fever. Patient had also told the nurse that his girlfriend had recently gone in for treatment of an STD because she had some irritation in her privates and he wants to be treated to. He denies any symptoms of STD however. [] Review of Systems: Review of Systems: Constitutional: Denies fever or chills. [] Respiratory: Complains of shortness of breath. [] Cardiovascular: Complains of transient chest pain. [] GI: Denies abdominal pain, nausea, vomiting, bloody stools or diarrhea. [] : Denies dysuria or penile discharge. [] Neurologic: Denies headache, focal weakness or sensory changes. [] A full 10 point review of systems has been reviewed and is otherwise negative. Heart Score: Risk Factors: Risk Factors: DM, Current or recent (<one month) smoker, HTN, HLP, family history of CAD, obesity. Risk Scores: Score 0 - 3: 2.5% MACE over next 6 weeks - Discharge Home Score 4 - 6: 20.3% MACE over next 6 weeks - Admit for Clinical Observation Score 7 - 10: 72.7% MACE over next 6 weeks - Early Invasive Strategies Allergies: Allergies: Allergies Coded Allergies Type Severity Reaction Last Updated Verified No Known Drug Allergies 11/09/14 No Physical Exam: PE: Constitutional: Well developed, well nourished, no acute distress, non-toxic appearance. [] HENT: Normocephalic, atraumatic, bilateral external ears normal, oropharynx moist, no oral exudates, nose normal. [] Eyes: PERRLA, EOMI, conjunctiva normal, no discharge. [] Neck: Normal range of motion, no tenderness, supple. [] Cardiovascular: Regular rate and rhythm [] Lungs & Thorax: Bilateral breath sounds clear to auscultation [] Abdomen: Bowel sounds normal, soft, no tenderness. [] Skin: Warm, dry, no erythema, no rash. [] Extremities: No tenderness, no cyanosis, no clubbing, ROM intact. [] Neurologic: Alert and oriented X 3, no focal deficits noted. [] EKG: EKG: EKG demonstrates normal sinus rhythm with rate of 80. [] Radiology/Procedures: Radiology/Procedures: [] Course & Med Decision Making: Course & Med Decision Making Pertinent Labs and Imaging studies reviewed. (See chart for details) [] Dragon Disclaimer: Dragon Disclaimer: This electronic medical record was generated, in whole or in part, using a voice recognition dictation system. Departure Departure Referrals: NO PCP (PCP) Justicifation of Admission Dx: Justifications for Admission: Justification of Admission Dx: Comment: (Not applicable) KYARA BANKS Jr. DO Nov 03, 2019 18:14
[2019-11-03 18:21] LABS: BASO % 0 % (0-3); EOS # 0.1 x10^3/uL (0.0-0.7); EOS % 4 % (0-3); HEMATOCRIT 42.7 % (39.0-53.0); HEMOGLOBIN 14.9 g/dL (13.0-17.5); LYMPH # 1.3 x10^3/uL (1.0-4.8); LYMPH % 40 % (24-48); MEAN CORPUSCULAR HEMOGLOBIN 32 pg (25-35); MEAN CORPUSCULAR HGB CONC 35 g/dL (31-37); MEAN CORPUSCULAR VOLUME 92 fL (79-100); MONO # 0.4 x10^3/uL (0.0-1.1); MONO % 14 % (0-9); NEUT # 1.4 x10^3/uL (1.8-7.7); NEUT % 42 % (31-73); PLATELET COUNT 105 x10^3/uL (140-400); RED BLOOD COUNT 4.65 x10^6/uL (4.30-5.70); WHITE BLOOD COUNT 3.2 x10^3/uL (4.0-11.0)
[2019-11-03 18:29] LABS: CALCIUM 8.5 mg/dL (8.5-10.1); CREATININE 1.2 mg/dL (0.7-1.3); GFR 73.1; POTASSIUM 3.5 mmol/L (3.5-5.1)
[2019-11-03 18:36] LABS: ALBUMIN 2.8 g/dL (3.4-5.0); ALBUMIN/GLOBULIN RATIO 0.7 (1.0-1.7); TOTAL BILIRUBIN 0.9 mg/dL (0.2-1.0)
--- NOTE | 2019-11-03 19:12 | RAD ---
EXAM: Chest, single view. HISTORY: Chest pain. COMPARISON: None. FINDINGS: A frontal view of the chest is obtained. There is no infiltrate, pleural effusion or pneumothorax. There is evidence of prior CABG. IMPRESSION: No acute pulmonary finding. Electronically signed by: Brissa Sparrow MD (11/03/2019 7:09 PM) [facility]
[2019-11-03 20:12] LABS: BILIRUBIN,URINE SMALL (NEG); CLARITY,URINE CLEAR; COLOR,URINE ORANGE; NITRITE,URINE NEGATIVE (NEG); PROTEIN,URINE NEGATIVE (NEG-TRACE)
[2019-11-03 20:20] LABS: RBC,URINE 0 /HPF (0-2)
[2019-11-03 20:21] LABS: BACTERIA,URINE 0 /HPF (0-FEW); SQUAMOUS EPITHELIAL CELL,UR FEW /LPF
[2019-11-03 20:42] VITALS: BP 180/94
--- NOTE | 2019-11-04 06:23 | EKG ---
[facility] [address] [place] [address] Test Date: 2019-11-03 Test Time: 18:03:14 Pat Name: LAVELL BRODY Department: Room: Gender: M Chart Calculator: : 1950 Requested By: KYARA BANKS Order Number: [id number] Reading MD: Ray Nunes MD Measurements Intervals [place] Rate: 80 P: 35 CT: 140 QRS: 67 QRSD: 92 T: 74 QT: 352 QTc: 409 Interpretive Statements SINUS RHYTHM LEFT ATRIAL ABNORMALITY ST & T ABNORMALITY, CONSIDER ANTEROLATERAL ISCHEMIA OR LEFT VENTRICULAR STRAIN ABNORMAL ECG Electronically Signed On 11-04-2019 9:57:06 CDT by Ray Nunes MD
== END 2019-11-03 20:49 | disposition left against medical advice (07) ==
LOC: ER 17:55
DX: R07.89 Other chest pain (principal); R06.02 Shortness of breath; I25.10 Atherosclerotic heart disease of native coronary artery without angina pectoris; I10 Essential (primary) hypertension; F12.90 Cannabis use, unspecified, uncomplicated; F14.90 Cocaine use, unspecified, uncomplicated; F17.200 Nicotine dependence, unspecified, uncomplicated; Z98.890 Other specified postprocedural states
CPT/HCPCS: 36415; 71045; 80053; 81001; 83880; 84484; 85025; 87086; 87491; 87591; 93005; 99285